=== PATIENT | male | born 1980 | race Caucasian/White ===

== ENCOUNTER 2017-04-25 15:52 | Emergency (ER) | payer SELFPAY ==
[~2017-04-25] VITALS: Ht 190.5 cm; Wt 68.2 kg
[~2017-04-25 15:52] MED LIST: CEPH500C3 PO; HUMALOGP; LANTUS2P SC; LORTA10 PO; XANA0.5T PO
[2017-04-25 16:00] VITALS: BP 134/70; PULSE 63; RESP 15; TEMP 97.4; O2SAT 99
[2017-04-25] MEDS ORDERED: ALPR.5 PO (16:11)
[2017-04-25] MEDS ORDERED: HYDR-3580 PO (16:11)
[2017-04-25] MEDS ORDERED: NOVORP2 SQ (16:11)
[2017-04-25] MEDS ORDERED: SODIUM CHLOR 0.9% 1000 ML INJ 1,000 ML IV SCH (16:30)
--- NOTE | 2017-04-25 16:35 | PD ---
HPI Chief Complaint: Alcohol/Drug Intoxication Time Seen by Provider: 16:23 Travel History International Travel<30 days: No Contact w/Intl Traveler<30days: No Traveled to known affect area: No History of Present Illness HPI 36 years old male was brought by EMS for lethargy. Patient's mother called EMS because she believes that patient took too many Xanax. Upon arrival patient was able to ambulate from the stretcher to the bed and was talking denies any medical problem. Patient has no complaint at that time. Patient is sleepy in the room now. Patient does not complains of anything right now. Patient has history of diabetes and chronic pain problem. Patient was reported on insulin, Xanax and hydrocodone. PFSH Past Medical History Arthritis: No Asthma: No Autoimmune Disease: No Blood Disorders: No Heart Rhythm Problems: No Cardiovascular Problems: No High Cholesterol: No Chemotherapy: No Chest Pain: Yes Congestive Heart Failure: No COPD: No Cerebrovascular Accident: No Coronary Artery Disease: No Diabetes: Yes (TYPE 1) Patient Takes Glucophage: No Diminished Hearing: No Endocrine: Yes Gastrointestinal Disorders: Yes Genitourinary: No Headaches: Yes Hepatitis: No Hiatal Hernia: Yes Hypertension: Yes Immune Disorder: No Inguinal Hernia: Yes (REPAIRED) Musculoskeletal: Yes (CHRONIC PAIN) Neurologic: Yes Psychiatric: No Reproductive: No Respiratory: No Migraines: No Myocardial Infarction: No Seizures: No Sickle Cell Disease: No Thyroid Disease: No Tetanus Vaccination: > 5 Years Influenza Vaccination: No PNEUMOCCOCAL Vaccine (Year): 2 Past Surgical History Abdominal Surgery: Yes (HERNIA REPAIR) Body Medical Devices: INGINEAL HERNIA Cholecystectomy: No Other Surgery: No Social History Alcohol Use: Yes ("OCCASIONALLY, RARELY PER PT") Tobacco Use: Yes (LESS THAN 1 PPD) Substance Use: Yes (Marijuana) Allergies-Medications (Allergen,Severity, Reaction): Coded Allergies: acetaminophen (Verified Allergy, Severe, Rash, 04/25/17) propoxyphene (Verified Allergy, Severe, Rash, 04/25/17) Reported Meds & Prescriptions Reported Meds & Active Scripts Active Reported Novolin R Inj (Insulin Human Regular) 1,000 Unit/10 Ml Vial 0 SQ DIRECTED Sliding Scale As Directed. Xanax (Alprazolam) 0.5 Mg Tab 0.5 Mg PO Q6H PRN Hydrocodone-Acetaminophen 7.5 Mg-325 Mg Tab 1 Tab PO Q4H PRN Review of Systems ROS Limitations: Altered Mental Status General / Constitutional: No: Fever Eyes: No: Visual changes HENT: No: Headaches Cardiovascular: No: Chest Pain or Discomfort Respiratory: No: Shortness of Breath Gastrointestinal: No: Abdominal Pain Genitourinary: No: Dysuria Musculoskeletal: No: Pain Skin: No Rash Neurologic: No: Weakness Psychiatric: No: Depression Endocrine: No: Polydipsia Hematologic/Lymphatic: No: Easy Bruising Physical Exam Narrative GENERAL: Well-nourished, well-developed patient. SKIN: Focused skin assessment warm/dry. HEAD: Normocephalic. EYES: No scleral icterus. No injection or drainage. Pupils 2 mm equal reactive. NECK: Supple, trachea midline. No JVD or lymphadenopathy. CARDIOVASCULAR: Regular rate and rhythm without murmurs, gallops, or rubs. RESPIRATORY: Breath sounds equal bilaterally. No accessory muscle use. GASTROINTESTINAL: Abdomen soft, non-tender, nondistended. MUSCULOSKELETAL: No cyanosis, or edema. Patient has multiple needle puncture wounds along the forearms and antecubital areas bilaterally. BACK: Nontender without obvious deformity. No CVA tenderness. Neurologic exam: Patient's lethargic. Patient's not communicative. No obvious focal neurological deficit. Data Data Last Documented VS Vital Signs Date Time Temp Pulse Resp B/P (MAP) Pulse Ox O2 Delivery O2 Flow Rate FiO2 04/25/17 17:10 62 15 119/70 (86) 98 Room Air 04/25/17 16:00 97.4 Orders Orders Electrocardiogram (04/25/17 16:28) Complete Blood Count With Diff (04/25/17 16:28) Comprehensive Metabolic Panel (04/25/17 16:28) Creatine Kinase (Cpk) (04/25/17 16:28) Troponin I (04/25/17 16:28) Iv Access Insert/Monitor (04/25/17 16:28) Ecg Monitoring (04/25/17 16:28) Oximetry (04/25/17 16:28) Drug Screen, Random Urine (04/25/17 16:28) Alcohol (Ethanol) (04/25/17 16:28) Salicylates (Aspirin) (04/25/17 16:28) Tylenol (Acetaminophen) (04/25/17 16:28) Sodium Chlor 0.9% 1000 Ml Inj (Ns 1000 M (04/25/17 16:30) Labs Laboratory Tests Test 04/25/17 16:29 04/25/17 16:54 White Blood Count 6.1 TH/MM3 Red Blood Count 4.28 MIL/MM3 Hemoglobin 12.9 GM/DL Hematocrit 39.3 % Mean Corpuscular Volume 91.9 FL Mean Corpuscular Hemoglobin 30.1 PG Mean Corpuscular Hemoglobin Concent 32.7 % Red Cell Distribution Width 11.9 % Platelet Count 170 TH/MM3 Mean Platelet Volume 9.2 FL Neutrophils (%) (Auto) 69.7 % Lymphocytes (%) (Auto) 23.0 % Monocytes (%) (Auto) 5.7 % Eosinophils (%) (Auto) 0.9 % Basophils (%) (Auto) 0.7 % Neutrophils # (Auto) 4.3 TH/MM3 Lymphocytes # (Auto) 1.4 TH/MM3 Monocytes # (Auto) 0.3 TH/MM3 Eosinophils # (Auto) 0.1 TH/MM3 Basophils # (Auto) 0.0 TH/MM3 CBC Comment DIFF FINAL Differential Comment Blood Urea Nitrogen 10 MG/DL Creatinine 0.79 MG/DL Random Glucose 306 MG/DL Total Protein 6.8 GM/DL Albumin 3.4 GM/DL Calcium Level 8.5 MG/DL Alkaline Phosphatase 96 U/L Aspartate Amino Transf (AST/SGOT) 33 U/L Alanine Aminotransferase (ALT/SGPT) 29 U/L Total Bilirubin 0.5 MG/DL Sodium Level 137 MEQ/L Potassium Level 4.2 MEQ/L Chloride Level 103 MEQ/L Carbon Dioxide Level 23.6 MEQ/L Anion Gap 10 MEQ/L Estimat Glomerular Filtration Rate 111 ML/MIN Total Creatine Kinase 294 U/L Troponin I LESS THAN 0.02 NG/ML Ethyl Alcohol Level LESS THAN 3 MG/DL Urine Opiates Screen NEG Urine Barbiturates Screen NEG Urine Amphetamines Screen POS Urine Benzodiazepines Screen POS Urine Cocaine Screen POS Urine Cannabinoids Screen NEG MDM Medical Decision Making Medical Screen Exam Complete: Yes Emergency Medical Condition: Yes Interpretation(s) 1745 PM. CBC within normal limit. CMP within normal limit. Glucose 306. Opponent normal. Cardiac enzymes are normal. Urine drug screen positive for amphetamine, benzodiazepine and cocaine. Differential Diagnosis Differential diagnosis including drug overdose, intoxication, electrolyte imbalance,. Narrative Course 36 years old male was brought in by EMS for lethargy and possible overdose on Xanax. Diagnosis Primary Impression: Substance induced mood disorder Additional Impression: Polysubstance abuse Patient Instructions: General Instructions Additional Instructions: Advised [facility]. Med/Other Pt SpecificInfo: No Meds Exist/No RX given Disposition: 01 DISCHARGE HOME Condition: Stable Mehrdad Vickers MD Apr 25, 2017 16:35
[2017-04-25 16:40] VITALS: BP 119/75; PULSE 64; RESP 16; O2SAT 98
[2017-04-25 16:52] LABS: AUTOMATED NEUTROPHIL # 4.3 TH/MM3 (1.8-7.7); BASOPHIL % 0.7 % (0.0-2.0); EOSINOPHIL # 0.1 TH/MM3 (0-0.4); EOSINOPHIL % 0.9 % (0.0-4.0); HEMATOCRIT 39.3 % (39.0-51.0); HEMOGLOBIN 12.9 GM/DL (13.0-17.0); LYMPHOCYTE # 1.4 TH/MM3 (1.0-4.8); MEAN CELL VOLUME 91.9 FL (80.0-100.0); MEAN CORPUSCULAR HEMOGLOBIN 30.1 PG (27.0-34.0); MEAN CORPUSCULAR HGB CONC 32.7 % (32.0-36.0); MEAN PLATELET VOLUME 9.2 FL (7.0-11.0); MONO % 5.7 % (0.0-8.0); MONOCYTE # 0.3 TH/MM3 (0-0.9); NEUT % 69.7 % (16.0-70.0); PLATELET COUNT 170 TH/MM3 (150-450); RED BLOOD COUNT 4.28 MIL/MM3 (4.50-5.90); RED CELL DISTRIBUTION WIDTH 11.9 % (11.6-17.2); WHITE BLOOD COUNT 6.1 TH/MM3 (4.0-11.0)
[2017-04-25 17:06] LABS: CHLORIDE 103 MEQ/L (98-107); SODIUM (NA) 137 MEQ/L (136-145)
[2017-04-25 17:09] LABS: ALBUMIN 3.4 GM/DL (3.4-5.0); BICARBONATE 23.6 MEQ/L (21.0-32.0); CALCIUM 8.5 MG/DL (8.5-10.1); GLUCOSE,RANDOM 306 MG/DL (74-106)
[2017-04-25 17:10] VITALS: BP 119/70; PULSE 62; RESP 15; O2SAT 98
[2017-04-25 17:10] LABS: BLOOD UREA NITROGEN 10 MG/DL (7-18)
[2017-04-25 17:12] LABS: ALT (GPT) 29 U/L (12-78); AST (GOT) 33 U/L (15-37)
[2017-04-25 17:13] LABS: CREATININE 0.79 MG/DL (0.60-1.30); GLOMERULAR FILTRATION RATE 111 ML/MIN (>89)
[2017-04-25 17:14] LABS: TOTAL BILIRUBIN ADULT 0.5 MG/DL (0.2-1.0); TOTAL PROTEIN 6.8 GM/DL (6.4-8.2)
[2017-04-25 17:15] LABS: ALKALINE PHOSPHATASE 96 U/L (45-117)
[2017-04-25 17:17] LABS: TROPONIN I LESS THAN 0.02 NG/ML (0.02-0.05)
[2017-04-25 18:40] VITALS: BP 124/69; PULSE 66; RESP 15; TEMP 97.5; O2SAT 100
[2017-04-25 20:49] VITALS: BP 121/69; PULSE 62; RESP 14; O2SAT 0; O2SAT 99
[2017-04-25 22:18] VITALS: BP 114/71; TEMP 98.4
[2017-04-26 07:39] LABS: ACETAMINOPHEN LESS THAN 2.0 MCG/ML (10.0-30.0)
--- NOTE | 2017-04-26 15:33 | EKG ---
Date Performed: 04/25/2017 Time Performed: 16:36:58 PTAGE: 36 years EKG: SINUS BRADYCARDIA BORDERLINE ECG PREVIOUS TRACING : 09/25/2008 03.24 Compared to prior tracing no significant change DOCTOR: Misha Hartley Interpretating Date/Time 04/26/2017 15:31:06
== END 2017-04-25 22:37 | disposition home or self-care (01) ==
LOC: PHED 15:52
DX: F19.14 Other psychoactive substance abuse with psychoactive substance-induced mood disorder (principal); R94.31 Abnormal electrocardiogram [ECG] [EKG]; E11.9 Type 2 diabetes mellitus without complications; I10 Essential (primary) hypertension; G89.29 Other chronic pain; F17.200 Nicotine dependence, unspecified, uncomplicated
CPT/HCPCS: 80053; 80307; 82550; 84484; 85025; 93005; 96360; 96361; 99284; J7030

== ENCOUNTER 2017-05-28 18:56 | Inpatient (IN) | payer SELFPAY ==
[~2017-05-28] VITALS: Ht 188 cm; Wt 68.2 kg
[~2017-05-28 18:56] MED LIST changes: +ALPR.5 PO; -CEPH500C3 PO; -HUMALOGP; +HYDR-3580 PO; -LANTUS2P SC; -LORTA10 PO; +NOVORP2 SQ; -XANA0.5T PO
[2017-05-28 19:10] VITALS: BP 122/71; PULSE 84; RESP 15; TEMP 99.5; O2SAT 98
[2017-05-28] MEDS ORDERED: SODIUM CHLOR 0.9% 1000 ML INJ 1,000 ML IV ONE (20:30)
[2017-05-28] MEDS ORDERED: PIPERACIL-TAZO 4.5 GM PREMIX 100 ML IV ONE (20:30)
[2017-05-28] MEDS ORDERED: VANCOMYCIN INJ 1,000 MG in SODIUM CHLOR 0.9% 250 ML INJ 250 ML IV ONE (20:30)
[2017-05-28] MEDS ORDERED: KETOROLAC TROMETHAMINE 30 MG/ML (IVP) VIAL IVP ONE (20:30)
[2017-05-28 21:29] LABS: BASOPHIL # 0.1 TH/MM3 (0-0.2); BASOPHIL % 0.7 % (0.0-2.0); EOSINOPHIL # 0.1 TH/MM3 (0-0.4); EOSINOPHIL % 0.4 % (0.0-4.0); HEMATOCRIT 34.9 % (39.0-51.0); HEMOGLOBIN 12.2 GM/DL (13.0-17.0); LYMPH % 15.7 % (9.0-44.0); LYMPHOCYTE # 2.4 TH/MM3 (1.0-4.8); MEAN CELL VOLUME 89.9 FL (80.0-100.0); MEAN CORPUSCULAR HEMOGLOBIN 31.5 PG (27.0-34.0); MEAN PLATELET VOLUME 8.9 FL (7.0-11.0); MONO % 10.2 % (0.0-8.0); MONOCYTE # 1.5 TH/MM3 (0-0.9); PLATELET COUNT 281 TH/MM3 (150-450); RED BLOOD COUNT 3.88 MIL/MM3 (4.50-5.90); RED CELL DISTRIBUTION WIDTH 12.2 % (11.6-17.2); WHITE BLOOD COUNT 15.1 TH/MM3 (4.0-11.0)
[2017-05-28 21:50] LABS: BICARBONATE 31.3 MEQ/L (21.0-32.0); CALCIUM 8.5 MG/DL (8.5-10.1)
--- NOTE | 2017-05-28 22:51 | PD ---
HPI Chief Complaint: Skin Problem Time Seen by Provider: 20:24 Travel History International Travel<30 days: No Contact w/Intl Traveler<30days: No Traveled to known affect area: No History of Present Illness HPI 36-year-old male with IV drug abuse history since to the emergency department with redness swelling tenderness and pain with subjective fever affecting the right upper arm. Patient is diabetic and states he ran out of test strips yesterday but blood sugars have been in the 300s. Patient had nausea without vomiting. Patient denies any chest pain shortness of breath abdominal pain abdominal cramping. Patient takes chronically hydrocodone and Xanax for her chronic pain syndrome and anxiety. Patient states he decided to inject Percocet as he had been running low on his hydrocodone for his chronic pain management. PFSH Past Medical History Arthritis: No Asthma: No Autoimmune Disease: No Blood Disorders: No Heart Rhythm Problems: No Cardiovascular Problems: No High Cholesterol: No Chemotherapy: No Chest Pain: Yes Congestive Heart Failure: No COPD: No Cerebrovascular Accident: No Coronary Artery Disease: No Diabetes: Yes (TYPE 1) Patient Takes Glucophage: No Diminished Hearing: No Endocrine: Yes Gastrointestinal Disorders: Yes Genitourinary: No Headaches: Yes Hepatitis: No Hiatal Hernia: Yes Hypertension: Yes Immune Disorder: No Inguinal Hernia: Yes (REPAIRED) Musculoskeletal: Yes (CHRONIC PAIN) Neurologic: Yes Psychiatric: No Reproductive: No Respiratory: No Migraines: No Myocardial Infarction: No Seizures: No Sickle Cell Disease: No Thyroid Disease: No Influenza Vaccination: No PNEUMOCCOCAL Vaccine (Year): 2 Past Surgical History Surgical History: No Previous Surgery Abdominal Surgery: Yes (HERNIA REPAIR) Body Medical Devices: INGINEAL HERNIA Cholecystectomy: No Other Surgery: No Social History Alcohol Use: Yes ("OCCASIONALLY, RARELY PER PT") Tobacco Use: Yes (LESS THAN 1 PPD) Substance Use: Yes (Marijuana, EDGARDO ) Allergies-Medications (Allergen,Severity, Reaction): Coded Allergies: acetaminophen (Verified Allergy, Severe, Rash, 04/25/17) propoxyphene (Verified Allergy, Severe, Rash, 04/25/17) Reported Meds & Prescriptions Reported Meds & Active Scripts Active Reported Novolin R Inj (Insulin Human Regular) 1,000 Unit/10 Ml Vial 0 SQ DIRECTED Sliding Scale As Directed. Xanax (Alprazolam) 0.5 Mg Tab 0.5 Mg PO Q6H PRN Hydrocodone-Acetaminophen 7.5 Mg-325 Mg Tab 1 Tab PO Q4H PRN Physical Exam Narrative GENERAL: Well-developed well-nourished male no acute distress or respiratory distress SKIN: Warm and dry. HEAD: Normocephalic. EYES: No scleral icterus. No injection or drainage. NECK: Supple, trachea midline. No JVD or lymphadenopathy. CARDIOVASCULAR: Regular rate and rhythm without murmurs, gallops, or rubs. RESPIRATORY: Breath sounds equal bilaterally. No accessory muscle use. GASTROINTESTINAL: Abdomen soft, non-tender, nondistended. MUSCULOSKELETAL: No cyanosis, or edema. Attention right upper extremity upper arm area with erythema induration central bullous lesion with cloudy fluid no axillary lymphadenopathy distal extremities neurovascular tendon intact. BACK: Nontender without obvious deformity. No CVA tenderness. Data Data Last Documented VS Vital Signs Date Time Temp Pulse Resp B/P (MAP) Pulse Ox O2 Delivery O2 Flow Rate FiO2 05/28/17 19:10 99.5 84 15 122/71 (88) 98 Orders Orders Basic Metabolic Panel (Bmp) (05/28/17 20:24) Complete Blood Count With Diff (05/28/17 20:24) Blood Culture (05/28/17 20:24) Wound Culture And Gram Stain (05/28/17 20:24) Iv Access Insert/Monitor (05/28/17 20:24) Ketorolac Inj (Toradol Inj) (05/28/17 20:30) Sodium Chlor 0.9% 1000 Ml Inj (Ns 1000 M (05/28/17 20:30) Blood Glucose (05/28/17 20:24) Piperacil-Tazo 4.5 Gm Premix (Zosyn 4.5 (05/28/17 20:30) Vancomycin Inj (Vancomycin Inj) (05/28/17 20:30) Drug Screen, Random Urine (05/28/17 20:24) Beta Hydroxybutyrate (Acetone) (05/28/17 20:24) Vancomycin Consult Pharmacy (Vancomycin (05/28/17 23:30) Cefepime Inj (Maxipime Inj) (05/29/17 09:00) Place In Observation (05/28/17 ) Vital Signs (Adult) Q4H (05/28/17 23:24) Activity Oob Ad Dawn (05/28/17 23:24) Sodium Chlor 0.9% 1000 Ml Inj (Ns 1000 M (05/28/17 23:24) Sodium Chloride 0.9% Flush (Ns Flush) (05/28/17 23:30) Sodium Chloride 0.9% Flush (Ns Flush) (05/29/17 09:00) Ondansetron Inj (Zofran Inj) (05/28/17 23:30) Comprehensive Metabolic Panel (05/29/17 06:00) Complete Blood Count With Diff (05/29/17 06:00) Scd Bilateral/Knee High YAMILET.BID (05/28/17 23:24) Lokesh Bilateral/Knee High YAMILET.QSHIFT (05/28/17 23:26) Oxycodone (Roxicodone) (05/28/17 23:30) Oxycodone (Roxicodone) (05/28/17 23:30) Docusate Sodium-Senna (Shahnaz-Colace) (05/29/17 09:00) Magnesium Hydroxide Liq (Milk Of Magnesi (05/28/17 23:30) Sennosides (Senokot) (05/28/17 23:30) Bisacodyl Supp (Dulcolax Supp) (05/28/17 23:30) Lactulose Liq (Lactulose Liq) (05/28/17 23:30) Bedside Glucose YAMILET.CSUGAR (05/28/17 23:24) Blood Glucose Goal (Criteria) (05/28/17 23:24) Hypoglycemia 70 Mg/Dl Or < (05/28/17 23:24) Notify Dr: Other (05/28/17 23:24) Dextrose 50% In Ghazala (Vial) Inj (D50w (Vi (05/28/17 23:30) Glucagon Inj (Glucagon Inj) (05/28/17 23:30) Insulin Aspart Supplemtl Scale (Novolog (05/29/17 08:00) Hemoglobin (Hgb) A1c (05/29/17 06:00) Admit Order (Ed Use Only) (05/29/17 ) Grinder Set Up Operator Internal / Telemetry YAMILET.Q8H (05/29/17 00:23) Diet 1999 Ada Cons Carb (05/29/17 Breakfast) Activity Oob With Assistance (05/29/17 00:23) Notify Dr: Other (05/29/17 00:23) Labs Laboratory Tests Test 05/28/17 20:40 White Blood Count 15.1 TH/MM3 Red Blood Count 3.88 MIL/MM3 Hemoglobin 12.2 GM/DL Hematocrit 34.9 % Mean Corpuscular Volume 89.9 FL Mean Corpuscular Hemoglobin 31.5 PG Mean Corpuscular Hemoglobin Concent 35.0 % Red Cell Distribution Width 12.2 % Platelet Count 281 TH/MM3 Mean Platelet Volume 8.9 FL Neutrophils (%) (Auto) 73.0 % Lymphocytes (%) (Auto) 15.7 % Monocytes (%) (Auto) 10.2 % Eosinophils (%) (Auto) 0.4 % Basophils (%) (Auto) 0.7 % Neutrophils # (Auto) 11.0 TH/MM3 Lymphocytes # (Auto) 2.4 TH/MM3 Monocytes # (Auto) 1.5 TH/MM3 Eosinophils # (Auto) 0.1 TH/MM3 Basophils # (Auto) 0.1 TH/MM3 CBC Comment DIFF FINAL Differential Comment Blood Urea Nitrogen 9 MG/DL Creatinine 1.00 MG/DL Random Glucose 233 MG/DL Calcium Level 8.5 MG/DL Sodium Level 137 MEQ/L Potassium Level 3.5 MEQ/L Chloride Level 100 MEQ/L Carbon Dioxide Level 31.3 MEQ/L Anion Gap 6 MEQ/L Estimat Glomerular Filtration Rate 85 ML/MIN B-Hydroxybutyrate 0.05 MMOL/L MDM Medical Decision Making Medical Screen Exam Complete: Yes Emergency Medical Condition: Yes Medical Record Reviewed: Yes Interpretation(s) CBC & BMP Diagram 05/28/17 20:40 Calcium Level 8.5 Vital Signs Date Time Temp Pulse Resp B/P (MAP) Pulse Ox O2 Delivery O2 Flow Rate FiO2 05/28/17 19:10 99.5 84 15 122/71 (88) 98 Differential Diagnosis Cellulitis abscess sepsis Narrative Course Patient presents with right upper extremity cellulitis with central fluctuance for abscess and intact bullous lesion with cloudy fluid IV access obtained specimens collected and sent for resulting aspiration of the bullous lesion performed and sent with culture Patient administered Toradol for pain management Site was incised with drainage and packing performed by nurse practitioner Patient's case discussed with medicine for admission Physician Communication Physician Communication discussed with Dr Florez Diagnosis Primary Impression: Abscess of right arm Additional Impression: Cellulitis of arm, right Admitting Information Admitting Physician Requests: Observation Lexi Melvin MD May 28, 2017 22:51
--- NOTE | 2017-05-28 23:07 | PD ---
Physical Exam Date Seen by Provider: May 28, 2017 Time Seen by Provider: 23:06 Narrative For full history and physical examination please see previous provider's note. I was asked to perform an incision and drainage to patient's right arm abscess. Data Data Last Documented VS Vital Signs Date Time Temp Pulse Resp B/P (MAP) Pulse Ox O2 Delivery O2 Flow Rate FiO2 05/28/17 19:10 99.5 84 15 122/71 (88) 98 Orders Orders Basic Metabolic Panel (Bmp) (05/28/17 20:24) Complete Blood Count With Diff (05/28/17 20:24) Blood Culture (05/28/17 20:24) Wound Culture And Gram Stain (05/28/17 20:24) Iv Access Insert/Monitor (05/28/17 20:24) Ketorolac Inj (Toradol Inj) (05/28/17 20:30) Sodium Chlor 0.9% 1000 Ml Inj (Ns 1000 M (05/28/17 20:30) Blood Glucose (05/28/17 20:24) Piperacil-Tazo 4.5 Gm Premix (Zosyn 4.5 (05/28/17 20:30) Vancomycin Inj (Vancomycin Inj) (05/28/17 20:30) Drug Screen, Random Urine (05/28/17 20:24) Urinalysis - C+S If Indicated (05/28/17 20:24) Beta Hydroxybutyrate (Acetone) (05/28/17 20:24) Labs Laboratory Tests Test 05/28/17 20:40 White Blood Count 15.1 TH/MM3 Red Blood Count 3.88 MIL/MM3 Hemoglobin 12.2 GM/DL Hematocrit 34.9 % Mean Corpuscular Volume 89.9 FL Mean Corpuscular Hemoglobin 31.5 PG Mean Corpuscular Hemoglobin Concent 35.0 % Red Cell Distribution Width 12.2 % Platelet Count 281 TH/MM3 Mean Platelet Volume 8.9 FL Neutrophils (%) (Auto) 73.0 % Lymphocytes (%) (Auto) 15.7 % Monocytes (%) (Auto) 10.2 % Eosinophils (%) (Auto) 0.4 % Basophils (%) (Auto) 0.7 % Neutrophils # (Auto) 11.0 TH/MM3 Lymphocytes # (Auto) 2.4 TH/MM3 Monocytes # (Auto) 1.5 TH/MM3 Eosinophils # (Auto) 0.1 TH/MM3 Basophils # (Auto) 0.1 TH/MM3 CBC Comment DIFF FINAL Differential Comment Blood Urea Nitrogen 9 MG/DL Creatinine 1.00 MG/DL Random Glucose 233 MG/DL Calcium Level 8.5 MG/DL Sodium Level 137 MEQ/L Potassium Level 3.5 MEQ/L Chloride Level 100 MEQ/L Carbon Dioxide Level 31.3 MEQ/L Anion Gap 6 MEQ/L Estimat Glomerular Filtration Rate 85 ML/MIN B-Hydroxybutyrate 0.05 MMOL/L MDM Medical Record Reviewed: Yes Supervised Visit with MALVIN: Yes Procedures Procedure Narrative After the risks and benefits were discussed the following procedure was performed: INCISION AND DRAINAGE OF ABSCESS: The area was prepped and was sterilely draped. A subcutaneous wheal of 1 % Xylocaine with a total number 3 mL was used to anesthetize the area. The area was properly anesthetized. A number 11 scalpel was used to make a 1 -cm incision across the area of the abscess. Cultures were obtained. The abscess was drained an irrigated with normal saline. Quarter inch iodoform packing was placed in the wound. Sterile dressing applied. Patient advised to have packing removed in two days. Jahaira Naranjo May 28, 2017 23:07
--- NOTE | 2017-05-28 23:27 | HHI.HP ---
HPI Service [facility] Primary Care Physician Winter Florentino MD Admission Diagnosis Diagnoses: (1) Abscess of right arm Diagnosis: Principal (2) IVDU (intravenous drug user) Diagnosis: Principal (3) DM (diabetes mellitus) Diagnosis: Principal (4) Tobacco abuse Diagnosis: Principal Travel History International Travel<30 Days: No Contact w/Intl Traveler <30 Da: No Traveled to Known Affected Are: No History of Present Illness This is a 36-year-old male with PMH of DM, Tobacco Abuse and IVDU who is brought to the ER by EMS secondary to complaints of right arm pain and swelling. Initially reported he was bitten by a snake, however later admitted he injects Oxycodone and Annie. States pain is constant, severe, 8/10, non- radiating, worse w/ movement. Denies fever, chills. On arrival, BP 122/71, HR 84, O2 sat 98% on RA, Temp 99.5. WBC 15.1. GFR 85. BS 233. Reports non- compliance w/ home insulin. S/p I&D in ER, Vanc/Kasian. Review of Systems Except as stated in HPI: all other systems reviewed are Neg ROS: 14 point review of systems otherwise negative. Past Family Social History Past Medical History PMH: DM, Tobacco Abuse and IVDU Past Surgical History PAST SURGICAL HISTORY: Hernia Repair Allergies: Coded Allergies: acetaminophen (Verified Allergy, Severe, Rash, 04/25/17) propoxyphene (Verified Allergy, Severe, Rash, 04/25/17) Family History PAST FAMILY HISTORY: Reviewed. No h/o DM or CAD Social History PAST SOCIAL HISTORY: Occasional alcohol. Smokes 1ppd. +IVDU Physical Exam Vital Signs Vital Signs Date Time Temp Pulse Resp B/P (MAP) Pulse Ox O2 Delivery O2 Flow Rate FiO2 05/28/17 19:10 99.5 84 15 122/71 (88) 98 Physical Exam PE: GENERAL: Young white male in no acute distress. HEENT: PERRLA, EOMI. No scleral icterus or conjunctival pallor. No lid lag or facial droop. CARDIOVASCULAR: Regular rate and rhythm. No obvious murmurs to auscultation. No chest tenderness to palpation. RESPIRATORY: No obvious rhonchi or wheezing. Clear to auscultation. Breath sounds equal bilaterally. GASTROINTESTINAL: Abdomen soft, non-tender, nondistended. BS normal. MUSCULOSKELETAL: Extremities without clubbing, cyanosis, or edema. No obvious deformities. RUE abscess s/p I&D w/ packing. Pulses intact. NEUROLOGICAL: Awake, alert and oriented x4. No focal neurologic deficits. Moving both upper and lower extremities spontaneously. Laboratory Laboratory Tests Test 05/28/17 20:40 White Blood Count 15.1 Red Blood Count 3.88 Hemoglobin 12.2 Hematocrit 34.9 Mean Corpuscular Volume 89.9 Mean Corpuscular Hemoglobin 31.5 Mean Corpuscular Hemoglobin Concent 35.0 Red Cell Distribution Width 12.2 Platelet Count 281 Mean Platelet Volume 8.9 Neutrophils (%) (Auto) 73.0 Lymphocytes (%) (Auto) 15.7 Monocytes (%) (Auto) 10.2 Eosinophils (%) (Auto) 0.4 Basophils (%) (Auto) 0.7 Neutrophils # (Auto) 11.0 Lymphocytes # (Auto) 2.4 Monocytes # (Auto) 1.5 Eosinophils # (Auto) 0.1 Basophils # (Auto) 0.1 CBC Comment DIFF FINAL Differential Comment Blood Urea Nitrogen 9 Creatinine 1.00 Random Glucose 233 Calcium Level 8.5 Sodium Level 137 Potassium Level 3.5 Chloride Level 100 Carbon Dioxide Level 31.3 Anion Gap 6 Estimat Glomerular Filtration Rate 85 B-Hydroxybutyrate 0.05 Date/Time Source Procedure Growth Status 05/28/17 20:40 Blood Peripheral Aerobic Blood Culture Pending Received 05/28/17 20:40 Blood Peripheral Anaerobic Blood Culture Pending Received 05/28/17 22:30 Wound Arm Gram Stain Pending Received 05/28/17 22:30 Wound Arm Wound Culture Pending Received Result Diagram: 05/28/17203905/28/172039 Caprini VTE Risk Assessment Caprini VTE Risk Assessment: No/Low Risk (score <= 1) Caprini Risk Assessment Model Point Value = 1 Point Value = 2 Point Value = 3 Point Value = 5 Age 41-60 Minor surgery BMI > 25 kg/m2 Swollen legs Varicose veins or History of unexplained or recurrent spontaneous Oral contraceptives or hormone replacement Sepsis (< 1 month) Serious lung disease, including pneumonia (< 1 month) Abnormal pulmonary function Acute myocardial infarction Congestive heart failure (< 1 month) History of inflammatory bowel disease Medical patient at bed rest Age 61-74 Arthroscopic surgery Major open surgery (> 45 min) Laparoscopic surgery (> 45 min) Malignancy Confined to bed (> 72 hours) Immobilizing plaster cast Central venous access Age >= 75 History of VTE Family history of VTE Factor V Leiden Prothrombin [id number] Lupus anticoagulant Anticardiolipin antibodies Elevated serum homocysteine Heparin-induced thrombocytopenia Other congenital or acquired thrombophilia Stroke (< 1 month) Elective arthroplasty Hip, pelvis, or leg fracture Acute spinal cord injury (< 1 month) Prophylaxis Regimen Total Risk Factor Score Risk Level Prophylaxis Regimen 0-1 Low Early ambulation 2 Moderate Order ONE of the following: *Sequential Compression Device (SCD) *Heparin 5000 units SQ BID 3-4 Higher Order ONE of the following medications: *Heparin 5000 units SQ TID *Enoxaparin/Lovenox 40 mg SQ daily (WT < 150 kg, CrCl > 30 mL/min) *Enoxaparin/Lovenox 30 mg SQ daily (WT < 150 kg, CrCl > 10-29 mL/min) *Enoxaparin/Lovenox 30 mg SQ BID (WT < 150 kg, CrCl > 30 mL/min) AND/OR *Sequential Compression Device (SCD) 5 or more Highest Order ONE of the following medications: *Heparin 5000 units SQ TID (Preferred with Epidurals) *Enoxaparin/Lovenox 40 mg SQ daily (WT < 150 kg, CrCl > 30 mL/min) *Enoxaparin/Lovenox 30 mg SQ daily (WT < 150 kg, CrCl > 10-29 mL/min) *Enoxaparin/Lovenox 30 mg SQ BID (WT < 150 kg, CrCl > 30 mL/min) AND *Sequential Compression Device (SCD) Assessment and Plan Problem List: (1) Abscess of right arm ICD Code: L02.413 - Cutaneous abscess of right upper limb (2) IVDU (intravenous drug user) ICD Code: F19.90 - Other psychoactive substance use, unspecified, uncomplicated (3) DM (diabetes mellitus) ICD Code: E11.9 - Type 2 diabetes mellitus without complications (4) Tobacco abuse ICD Code: Z72.0 - Tobacco use Assessment and Plan A/P: 1. RUE Abscess: s/p injection w/ Oxy/Annie, now w/ abscess, s/p I&D in ER. Follow up wound/blood cultures, continue w/ IV Abx, Wound Management consult as needed for further eval/tx. 2. DM: Uncontrolled secondary to non-compliance. Sliding scale w/ Accu-Cheks , check Hgb A1c. 3. IVDU: Admits to IVDU w/ Oxy/Annie, h/o Cocaine. Ativan prn. 4. Tobacco Abuse: Pt counselled. NicoDerm prn if needed. 5. DVT Prophylaxis: SCD/Teds. 6. Social work for d/c planning as needed. 7. Case discussed w/ ER physician at length, labs/records/imaging reviewed by me. Valorie Floerz MD May 28, 2017 23:27
[2017-05-28] MEDS ORDERED: DEXTROSE 50% IN WATER 50 ML VIAL(D50) IV PUSH PRN (23:30)
[2017-05-28] MEDS ORDERED: SODIUM CHLORIDE 0.9% FLUSH 10 ML FLUSH IV FLUSH PRN (23:30)
[2017-05-28] MEDS ORDERED: BISACODYL 10 MG SUPP RECTAL PRN (23:30)
[2017-05-28] MEDS ORDERED: ONDANSETRON HCL 4 MG/2 ML VIAL IVP PRN (23:30)
[2017-05-28] MEDS ORDERED: SENNOSIDES 8.6 MG TAB PO PRN (23:30)
[2017-05-28] MEDS ORDERED: MAGNESIUM HYDROXIDE SUSP 30 ML CUP PO PRN (23:30)
[2017-05-28] MEDS ORDERED: Vancomycin Consult Pharmacy 1 EA OTHER SCH (23:30)
[2017-05-28] MEDS ORDERED: LACTULOSE SYRUP 20 GM/30 ML CUP PO PRN (23:30)
[2017-05-28] MEDS ORDERED: GLUCAGON 1 MG/ML VIAL OTHER PRN (23:30)
[2017-05-29] VITALS (11 sets, daily range): BP systolic 114–137; BP diastolic 62–73; PULSE 68–91; RESP 18; TEMP 97.6–98.8; O2SAT 98–100
[2017-05-29] MEDS: SODIUM CHLOR 0.9% 1000 ML INJ 1,000 ML IV SCH ×3 (02:19→19:05)
[2017-05-29] MEDS ORDERED: INSULIN HUMAN REGULAR 1,000 UNITS/10 ML VIAL IV PUSH ONE (02:45)
[2017-05-29 07:35] LABS: AUTOMATED NEUTROPHIL # 10.6 TH/MM3 (1.8-7.7); BASOPHIL # 0.1 TH/MM3 (0-0.2); BASOPHIL % 0.5 % (0.0-2.0); EOSINOPHIL % 0.2 % (0.0-4.0); HEMATOCRIT 33.5 % (39.0-51.0); HEMOGLOBIN 11.8 GM/DL (13.0-17.0); LYMPH % 13.4 % (9.0-44.0); LYMPHOCYTE # 1.8 TH/MM3 (1.0-4.8); MEAN CELL VOLUME 89.7 FL (80.0-100.0); MEAN CORPUSCULAR HEMOGLOBIN 31.6 PG (27.0-34.0); MEAN CORPUSCULAR HGB CONC 35.2 % (32.0-36.0); MEAN PLATELET VOLUME 8.1 FL (7.0-11.0); MONO % 8.5 % (0.0-8.0); MONOCYTE # 1.2 TH/MM3 (0-0.9); NEUT % 77.4 % (16.0-70.0); PLATELET COUNT 264 TH/MM3 (150-450); RED BLOOD COUNT 3.73 MIL/MM3 (4.50-5.90); RED CELL DISTRIBUTION WIDTH 11.9 % (11.6-17.2); WHITE BLOOD COUNT 13.7 TH/MM3 (4.0-11.0)
[2017-05-29 08:04] LABS: ALBUMIN 2.6 GM/DL (3.4-5.0); ALT (GPT) 13 U/L (12-78); AST (GOT) 10 U/L (15-37); BICARBONATE 25.8 MEQ/L (21.0-32.0); BLOOD UREA NITROGEN 12 MG/DL (7-18); CHLORIDE 103 MEQ/L (98-107); CREATININE 0.75 MG/DL (0.60-1.30); GLOMERULAR FILTRATION RATE 118 ML/MIN (>89); GLUCOSE,RANDOM 219 MG/DL (74-106); SODIUM (NA) 137 MEQ/L (136-145)
[2017-05-29 08:06] LABS: ALKALINE PHOSPHATASE 126 U/L (45-117); TOTAL BILIRUBIN ADULT 0.5 MG/DL (0.2-1.0); TOTAL PROTEIN 6.6 GM/DL (6.4-8.2)
[2017-05-29] MEDS: DOCUSATE SODIUM 50 MG/SENNA 8.6 MG TAB PO SCH ×2 (09:00→21:00)
[2017-05-29] MEDS: SODIUM CHLORIDE 0.9% FLUSH 10 ML FLUSH IV FLUSH SCH ×2 (09:00→21:00)
--- NOTE | 2017-05-29 09:54 | HHI.PR ---
Subjective Remarks Follow up for RUE abscess. The patient reports continued RUE pain, edema, erythema surrounding abscess. He is still able to bend the right elbow. He reports minimal improvement overnight. Denies fevers/chills, chest pain, palpitations, shortness of breath, nausea/vomiting, or abdominal pain. Objective Vitals Vital Signs Date Time Temp Pulse Resp B/P (MAP) Pulse Ox O2 Delivery O2 Flow Rate FiO2 05/29/17 07:14 97.6 79 18 130/73 (92) 99 05/29/17 04:00 88 05/29/17 04:00 18 05/29/17 03:25 98.8 91 18 121/64 (83) 98 05/29/17 01:50 98.2 91 18 137/65 (89) 98 05/29/17 01:33 90 16 133/62 (85) 98 05/28/17 19:10 99.5 84 15 122/71 (88) 98 I/O 05/28/17 05/28/17 05/28/17 05/29/17 05/29/17 05/29/17 07:00 15:00 23:00 07:00 15:00 23:00 Intake Total 1350 ml Balance 1350 ml Intake IV Total 1350 ml Result Diagram: 05/29/17 0700 05/29/17 0700 Objective Remarks GENERAL: Well-nourished, well-developed male patient in [facility]. SKIN: Warm and dry. No rash. RUE abscess with packing in place, significant surrounding edema and erythema extending to the mid forearm and mid upper arm; diffusely tender to palpation. HEENT: Normocephalic. Atraumatic. Pupils equal and round. Mucous membranes pink and moist. CARDIOVASCULAR: Regular rate and rhythm. S1, S2 noted. No murmur appreciated. RESPIRATORY: No accessory muscle use. Clear to auscultation. Breath sounds equal bilaterally. GASTROINTESTINAL: Abdomen soft, non-tender, nondistended. Normoactive bowel sounds x4. MUSCULOSKELETAL: No obvious deformities. Extremities without clubbing, cyanosis , or edema. Full ROM of right wrist and elbow. NEUROLOGICAL: Awake and alert. No obvious cranial nerve deficits. Motor grossly within normal limits. Normal speech. PSYCHIATRIC: Appropriate mood and affect; insight and judgment normal. Medications and IVs Current Medications Medications (Trade) Dose Ordered Sig/Kareem Route Start Time Stop Time Status Last Admin Pharmacy Profile Note 0 ml @ 0 mls/hr UNSCH OTHER 05/28/17 23:30 Cefepime HCl 1000 mg/Sodium Chloride 100 ml @ 200 mls/hr Q12H IV 05/29/17 09:00 05/29/17 10:02 Sodium Chloride 1,000 ml @ 100 mls/hr Q10H IV 05/28/17 23:24 05/29/17 10:03 (NS Flush) 2 ml UNSCH PRN IV FLUSH 05/28/17 23:30 (NS Flush) 2 ml BID IV FLUSH 05/29/17 09:00 (Zofran Inj) 4 mg Q6H PRN IVP 05/28/17 23:30 (Roxicodone) 10 mg Q4H PRN PO 05/28/17 23:30 05/29/17 10:00 (Roxicodone) 5 mg Q4H PRN PO 05/28/17 23:30 (Shahnaz-Colace) 1 tab BID PO 05/29/17 09:00 (Milk Of Magnesia Liq) 30 ml Q12H PRN PO 05/28/17 23:30 (Senokot) 17.2 mg Q12H PRN PO 05/28/17 23:30 (Dulcolax Supp) 10 mg DAILY PRN RECTAL 05/28/17 23:30 (Lactulose Liq) 30 ml DAILY PRN PO 05/28/17 23:30 (D50w (Vial) Inj) 50 ml UNSCH PRN IV PUSH 05/28/17 23:30 (Glucagon Inj) 1 mg UNSCH PRN OTHER 05/28/17 23:30 (NovoLOG SUPPLEMENTAL SCALE) 1 ACHS SLIDING SCALE SQ 05/29/17 08:00 Vancomycin HCl 1250 mg/Sodium Chloride 262.5 ml @ 250 mls/hr ONCE ONCE IV 05/29/17 10:00 05/29/17 11:02 Vancomycin HCl 1250 mg/Sodium Chloride 262.5 ml @ 250 mls/hr Q12H IV 05/29/17 22:00 Miscellaneous Information SPECIFIC LAB TO BE [facility]... ONCE ONCE .XX 05/30/17 09:45 05/30/17 09:46 A/P Problem List: (1) Abscess of right arm ICD Code: L02.413 - Cutaneous abscess of right upper limb (2) IVDU (intravenous drug user) ICD Code: F19.90 - Other psychoactive substance use, unspecified, uncomplicated (3) DM (diabetes mellitus) ICD Code: E11.9 - Type 2 diabetes mellitus without complications (4) Tobacco abuse ICD Code: Z72.0 - Tobacco use Assessment and Plan 36-year-old male with PMH of DM, Tobacco Abuse and IVDU who is brought to the ER by EMS secondary to complaints of right arm pain and swelling after injecting Sepsis with RUE Abscess: s/p injection w/ Oxy/Annie, now w/ abscess. Meets sepsis criteria with leukocytosis WBC 15.1K and tachycardia, source-abscess. -S/p I&D in ER around midnight 05/29. -Change packing q24h, wound care orders placed -[employer] to provide IV pole with sling for elevation -Wound and Blood Cultures pending, continue to follow -Continue antibiotics with IV Vanco and IV Cefepime -Monitor for improvement. DM: Uncontrolled secondary to non-compliance. BG 233 upon arrival. -Sliding scale w/ Accu-Cheks -Check Hgb A1c. IVDU: Admits to IVDU w/ Oxy/Annie, h/o Cocaine. -Oxycodone prn pain -Ativan prn withdrawal. Tobacco Abuse: chronic -Pt counselled. -NicoDerm prn if needed. DVT Prophylaxis: SCD/Teds. Discharge Planning Discharge pending further clinical improvement, not yet ready for discharge. Yina Cuadra PA-C May 29, 2017 9:54 am
[2017-05-29] MEDS ORDERED: VANCOMYCIN INJ 1,250 MG in SODIUM CHLOR 0.9% 250 ML INJ 250 ML IV ONE (10:00)
[2017-05-29] MEDS: CEFEPIME INJ 1,000 MG in SODIUM CHLORIDE 0.9% INJ 100 ML IV SCH ×2 (10:02→23:44)
[2017-05-29] MEDS: INSULIN ASPART SUPPLEMENTAL SCALE SQ SCH ×4 (10:18→23:35)
[2017-05-29 12:46] LABS: HEMOGLOBIN A1C 8.7 % (4.3-6.0)
[2017-05-30] VITALS (8 sets, daily range): BP systolic 120–138; BP diastolic 74–81; PULSE 74–100; RESP 17–18; TEMP 95.8–98.2; O2SAT 96–98
[2017-05-30] MEDS: VANCOMYCIN INJ 1,250 MG in SODIUM CHLOR 0.9% 250 ML INJ 250 ML IV SCH ×2 (02:29→15:45)
[2017-05-30] MEDS ORDERED: SODIUM CHLOR 0.9% 1000 ML INJ 1,000 ML IV ONE ×2 (08:00→08:30)
[2017-05-30] MEDS ORDERED: INSULIN HUMAN REGULAR 1,000 UNITS/10 ML VIAL IV PUSH ONE (08:00)
[2017-05-30] MEDS: INSULIN ASPART SUPPLEMENTAL SCALE SQ SCH ×4 (08:05→21:00)
[2017-05-30] MEDS: SODIUM CHLORIDE 0.9% FLUSH 10 ML FLUSH IV FLUSH SCH ×2 (08:06→21:00)
[2017-05-30] MEDS: DOCUSATE SODIUM 50 MG/SENNA 8.6 MG TAB PO SCH ×2 (08:06→21:00)
[2017-05-30] MEDS: CEFEPIME INJ 1,000 MG in SODIUM CHLORIDE 0.9% INJ 100 ML IV SCH (08:07)
[2017-05-30] MEDS: SODIUM CHLOR 0.9% 1000 ML INJ 1,000 ML IV SCH ×2 (08:14→15:24)
--- NOTE | 2017-05-30 09:00 | HHI.PR ---
Subjective Remarks Patient reports that pain in right upper extremity continues. Denies any chest pain shortness of breath. Denies any nausea or vomiting. Objective Vital Signs Date Time Temp Pulse Resp B/P (MAP) Pulse Ox O2 Delivery O2 Flow Rate FiO2 05/30/17 08:00 95.8 82 17 128/74 (92) 98 05/30/17 05:31 98.2 79 18 138/81 (100) 96 05/29/17 23:32 98.1 68 18 129/72 (91) 99 05/29/17 20:13 18 05/29/17 19:38 97.8 71 18 114/67 (83) 98 05/29/17 15:40 71 05/29/17 15:30 98.0 72 18 134/69 (90) 100 05/29/17 11:32 98.2 82 18 118/64 (82) 98 I/O 05/29/17 05/29/17 05/29/17 05/30/17 05/30/17 05/30/17 07:00 15:00 23:00 07:00 15:00 23:00 Intake Total 1350 ml 100 ml Balance 1350 ml 100 ml Intake IV Total 1350 ml 100 ml Result Diagram: 05/29/17 0700 05/29/17 0700 Objective Remarks GENERAL: Patient sitting up in chair. Appears uncomfortable. Alert and oriented 3. SKIN: Warm and dry. HEAD: Normocephalic. EYES: No scleral icterus. No injection or drainage. NECK: Supple, trachea midline. No JVD. CARDIOVASCULAR: Regular rate and rhythm without murmurs, gallops, or rubs. RESPIRATORY: Breath sounds equal bilaterally. No accessory muscle use. GASTROINTESTINAL: Abdomen soft, non-tender, nondistended. MUSCULOSKELETAL: No cyanosis, or edema. BACK: Nontender without obvious deformity. No CVA tenderness. A/P Assessment and Plan 36-year-old male with PMH of DM, Tobacco Abuse and IVDU who is brought to the ER by EMS secondary to complaints of right arm pain and swelling after injecting //Sepsis with RUE Abscess: s/p injection w/ Oxy/Annie, now w/ abscess. Meets sepsis criteria with leukocytosis WBC 15.1K and tachycardia, source-abscess. -S/p I&D in ER around midnight 2/11. -Change packing q24h, wound care orders placed -[employer] to provide IV pole with sling for elevation -Wound and Blood Cultures pending, continue to follow -Continue antibiotics with IV Vanco and IV Cefepime -Monitor for improvement. = Slightly worsening erythema beyond the drawn borders. Order CT right upper extremity. Continue vancomycin. Adjust cefepime dosing. Orthotic consult for abscess drainage. //DM: Uncontrolled secondary to non-compliance. BG 233 upon arrival. -Sliding scale w/ Accu-Cheks -Check Hgb A1c. = Uncontrolled. Glucose 500 this morning. We will increase sliding scale to moderate, and Levemir. 1 L normal saline bolus. //IVDU: Admits to IVDU w/ Oxy/Annie, h/o Cocaine. -Oxycodone prn pain -Ativan prn withdrawal. //Tobacco Abuse: chronic -Pt counselled. -NicoDerm prn if needed. DVT Prophylaxis: SCD/Teds. Discharge Planning Discharge pending further clinical improvement, not yet ready for discharge. Nicolás Gloria MD May 30, 2017 09:00
[2017-05-30] MEDS: INSULIN DETEMIR 100 UNITS/ML VIAL SQ SCH ×2 (09:13→21:00)
[2017-05-30] MEDS ORDERED: CEFEPIME INJ 2,000 MG in SODIUM CHLORIDE 0.9% INJ 100 ML IV SCH (10:00)
--- NOTE | 2017-05-30 11:06 | MB ---
cc: FLORINA HAMILTON DATE OF ADMISSION 05/28/2017 DATE OF CONSULTATION 05/30/2017 REASON FOR CONSULTATION Right arm infection. HISTORY Chaka is a 36-year-old male. He has a history of diabetes and tobacco abuse. He presented to the ER complaining of approximately five or six days of right arm swelling and pain. He admits to IV drug use. He injects Roxicodone and oxycodone. He began having increasing swelling, redness and pain. He presented to the emergency room. The abscess was initially drained in the emergency department. He has been on IV antibiotics. He has had some improvement of swelling and redness. He continues to have pain around the medial aspect of his elbow. The pain is worse with movement. He does not control his diabetes well. PAST MEDICAL HISTORY 1. Adult-onset diabetes. 2. Tobacco abuse. 3. IV drug use. SURGERIES Hernia repair. ALLERGIES PROPOXYPHENE TYLENOL. MEDICATIONS Please see EMR for complete list of inpatient medications. He does take home insulin. FAMILY HISTORY Noncontributory. SOCIAL HISTORY The patient smokes a pack a day. He drinks alcohol occasionally. He does admit to IV drug use. REVIEW OF SYSTEMS The patient denies headache, visual changes, neck pain, chest pain, shortness of breath, abdominal pain, nausea, vomiting or recent weight loss or fever or chills. He complains of right arm pain, swelling and redness. PHYSICAL EXAMINATION GENERAL: The patient is a thin 36-year-old male in no acute distress. He is awake and alert. He is alert and oriented x3. He appears well-developed and well-nourished. VITAL SIGNS: Temperature 95.8, pulse 82, respirations 17, blood pressure 128/74, O2 sat 98% on room air. HEAD: The patient is normocephalic. Pupils are equal. NECK: Soft, nontender. Trachea is midline. ABDOMEN: Soft, nontender, nondistended. EXTREMITIES: Examination of the right arm reveals no pain with shoulder, wrist or finger motion. He has intact sensation in all fingers. He has good capillary refill in all fingers. Radial pulse is palpable. Examination of his elbow reveals minimal pain with gentle range of motion of the elbow. He does have a 1 cm open wound with packing in place. There is some purulent drainage. There is significant erythema around the medial aspect of the elbow. There is no fluctuance noted. Forearm compartments are soft. Examination of the left arm reveals no pain with shoulder, elbow or wrist motion. He has intact sensation in all fingers. He has good capillary refill in all fingers. Skin is intact. Examination of the bilateral lower extremities reveals no significant pain with hip, knee or ankle motion. He has intact sensation in both feet. Dorsalis pedis pulses are palpable. Skin is intact. LABORATORY DATA The patient is a white blood cell count of 13.7 with hematocrit of 33.5 and hemoglobin of 11.8. BUN is 12, creatinine is 0.75. LABORATORY DATA Microbiology labs with cultures from right arm reveal no growth to date. IMPRESSION 1. Diabetes. 2. Tobacco dependence. 3. IV drug use. 4. Right arm abscess. PLAN The treatment options were discussed with the patient. At this point the wound has been opened and packed. I would recommend a CT scan of the right elbow region to see if there is any further fluid collections. If the patient has further abscess or loculations around the elbow, he will need surgical irrigation and debridement of the right arm. If there are no loculations present, then he may continue packing and IV antibiotics. The packing should be changed daily. I will follow up with the patient after the CT scan is complete. All questions were answered. A mid-level provider in my office, nurse practitioner or PA, may see this patient on a follow-up basis and continue to implement the objective of this plan including: Starting or adjusting medications, injections of muscle, tendon, bursa or joints, cast application, orthotic or brace application, physical therapy, further radiographic studies including x-ray, MRI, CT, ultrasounds or bone scan, vascular studies, neurologic studies, or other specialist consultations, and proceeding with surgical management as appropriate. MD HOLGER Barros/RACQUEL /10:10 AM /10:35 AM
[2017-05-30] MEDS ORDERED: IOHEXOL 350 MG/ML 10 ML VIAL (for RAD DIAG) IVCONTRAST ONE (12:06)
[2017-05-30] MEDS ORDERED: MORPHINE SULFATE 4 MG/ML INJ IV PUSH ONE (13:15)
[2017-05-30] MEDS ORDERED: PHARMACY ORDERED LAB ONE (14:45)
[2017-05-30] MEDS: CEFEPIME INJ 2,000 MG in SODIUM CHLORIDE 0.9% INJ 100 ML IV SCH (17:57)
[2017-05-31] VITALS (10 sets, daily range): BP systolic 119–146; BP diastolic 66–82; PULSE 46–87; RESP 16–19; TEMP 97.6–98; O2SAT 97–100
[2017-05-31] MEDS: CEFEPIME INJ 2,000 MG in SODIUM CHLORIDE 0.9% INJ 100 ML IV SCH ×3 (00:40→17:06)
[2017-05-31] MEDS: SODIUM CHLOR 0.9% 1000 ML INJ 1,000 ML IV SCH ×2 (01:24→12:42)
[2017-05-31] MEDS ORDERED: POVIDONE IODINE 5% (ANTISEPSIS KIT) 4 APPLICATIONS EACH NARE PRN (02:15)
[2017-05-31] MEDS ORDERED: CHLORHEXIDINE GLUCONATE 2 % 1 PACK (2 CLOTHS) TOPICAL PRN (02:15)
[2017-05-31] MEDS ORDERED: SODIUM CHLORID 0.9% 500 ML IV PRN (02:15)
[2017-05-31] MEDS ORDERED: LACTATED RINGER'S 1000 ML IV PRN (02:15)
[2017-05-31] MEDS: VANCOMYCIN INJ 1,250 MG in SODIUM CHLOR 0.9% 250 ML INJ 250 ML IV SCH ×2 (03:20→15:32)
[2017-05-31] MEDS: INSULIN ASPART SUPPLEMENTAL SCALE SQ SCH ×4 (08:06→23:27)
[2017-05-31] MEDS: SODIUM CHLORIDE 0.9% FLUSH 10 ML FLUSH IV FLUSH SCH ×2 (08:09→23:14)
[2017-05-31] MEDS: DOCUSATE SODIUM 50 MG/SENNA 8.6 MG TAB PO SCH ×2 (08:09→23:14)
--- NOTE | 2017-05-31 08:31 | PD.ORT.PN ---
Subjective Subjective Remarks Swelling of infection to right elbow. History of being diabetic Objective Vitals Vital Signs Date Time Temp Pulse Resp B/P (MAP) Pulse Ox O2 Delivery O2 Flow Rate FiO2 05/31/17 08:03 97.7 75 16 129/76 (93) 100 05/31/17 05:30 97.8 68 18 120/70 (87) 97 05/31/17 04:47 58 05/31/17 00:18 68 05/30/17 20:32 74 05/30/17 16:13 76 05/30/17 16:00 96.7 83 17 134/80 (98) 98 05/30/17 12:00 96.0 100 17 120/77 (91) 98 05/30/17 11:46 91 I/O 05/30/17 05/30/17 05/30/17 05/31/17 05/31/17 05/31/17 07:00 15:00 23:00 07:00 15:00 23:00 Intake Total 1100 ml 362.5 ml Output Total 500 ml Balance 1100 ml 362.5 ml -500 ml Intake IV Total 1100 ml 362.5 ml Output Urine Total 500 ml # Voids 3 # Bowel Movements 0 Result Diagram: 05/29/17 0700 05/29/17 0700 Objective Remarks Right upper extremity: No pain with shoulder range of motion. Redness and warmth with skin breakdown over medial portion of the elbow. The erythema has spread to outside the outline drawn for border of erythema. Distally intact sensation. Full extension and flexion of all fingers. Good capillary refills Assessment & Plan Assessment and Plan Abscess and cellulitis of right elbow Nothing by mouth Surgery today for irrigation debridement After surgery antibiotics will continue Sign consents Sd Montes Jr. May 31, 2017 08:31
[2017-05-31] MEDS: INSULIN DETEMIR 100 UNITS/ML VIAL SQ SCH ×2 (08:44→23:27)
--- NOTE | 2017-05-31 09:31 | RADRPT ---
EXAM DATE/TIME: 05/30/2017 11:55 [facility] COMPARISON: No previous studies available for comparison. INDICATIONS : Possible abscess right elbow. Redness and swelling mid humerus to elbow IV CONTRAST: 75 cc Omnipaque 350 (iohexol) IV RADIATION DOSE: 16.28 CTDIvol (mGy) MEDICAL HISTORY : Hypertension. Diabetes mellitus type 2. SURGICAL HISTORY : None. ENCOUNTER: Initial ACUITY: 3 days PAIN SCALE: 5/10 LOCATION: Right elbow TECHNIQUE: Volumetric scanning of the elbow was performed. Using automated exposure control and adjustment of t he mA and/or kV according to patient size, radiation dose was kept as low as reasonably achievable to obtain optimal diagnostic quality images. DICOM format image data is available electronically for r eview and comparison. FINDINGS: Motion artifact degrades the study. There is stranding of the subcutaneous fat involving the upper ar m along its more medial aspect. There is no abscess. No cortical destruction involving the humerus. N o lucency involving the humerus. No fracture or dislocation. Major vasculature structures are unremar kable. No radiopaque foreign body. CONCLUSION: 1. Cellulitis. No abscess or CT evidence to suggest osteomyelitis. Lion Galdamez Jr., MD on May 31, 2017 at 9:24 Board Certified Radiologist. This report was verified electronically.
[2017-05-31] MEDS ORDERED: PHARMACY ORDERED LAB ONE ×2 (09:45→14:45)
--- NOTE | 2017-05-31 11:19 | HHI.PR ---
Subjective Remarks Patient reports that pain in right elbow continues. Denies any chest pain shortness of breath. Denies any nausea or vomiting. Objective Vital Signs Date Time Temp Pulse Resp B/P (MAP) Pulse Ox O2 Delivery O2 Flow Rate FiO2 05/31/17 08:03 97.7 75 16 129/76 (93) 100 05/31/17 05:30 97.8 68 18 120/70 (87) 97 05/31/17 04:47 58 05/31/17 00:18 68 05/30/17 20:32 74 05/30/17 16:13 76 05/30/17 16:00 96.7 83 17 134/80 (98) 98 05/30/17 12:00 96.0 100 17 120/77 (91) 98 05/30/17 11:46 91 I/O 05/30/17 05/30/17 05/30/17 05/31/17 05/31/17 05/31/17 07:00 15:00 23:00 07:00 15:00 23:00 Intake Total 1100 ml 362.5 ml Output Total 500 ml Balance 1100 ml 362.5 ml -500 ml Intake IV Total 1100 ml 362.5 ml Output Urine Total 500 ml # Voids 3 # Bowel Movements 0 Result Diagram: 05/29/17 0700 05/29/17 0700 Objective Remarks GENERAL: Patient sitting up in chair. Appears uncomfortable. Alert and oriented 3. No change on exam today. SKIN: Warm and dry. HEAD: Normocephalic. EYES: No scleral icterus. No injection or drainage. NECK: Supple, trachea midline. No JVD. CARDIOVASCULAR: Regular rate and rhythm without murmurs, gallops, or rubs. RESPIRATORY: Breath sounds equal bilaterally. No accessory muscle use. GASTROINTESTINAL: Abdomen soft, non-tender, nondistended. MUSCULOSKELETAL: No cyanosis, or edema. BACK: Nontender without obvious deformity. No CVA tenderness. A/P Assessment and Plan 36-year-old male with PMH of DM, Tobacco Abuse and IVDU who is brought to the ER by EMS secondary to complaints of right arm pain and swelling after injecting //Sepsis with RUE Abscess: s/p injection w/ Oxy/Annie, now w/ abscess. Meets sepsis criteria with leukocytosis WBC 15.1K and tachycardia, source-abscess. -S/p I&D in ER around midnight 05/29. -Change packing q24h, wound care orders placed -[employer] to provide IV pole with sling for elevation -Wound and Blood Cultures pending, continue to follow -Continue antibiotics with IV Vanco and IV Cefepime -Monitor for improvement. = Slightly worsening erythema beyond the drawn borders. Order CT right upper extremity. Continue vancomycin. Adjust cefepime dosing. Orthotic consult for abscess drainage. 05/31. Discussed with Nurse. Improving leukocytosis 13.7. No Needs for Surgery at This Time. Continue on Antibiotics, Follow-Up Wound Culture with Gram-Positive Cocci. //DM: Uncontrolled secondary to non-compliance. BG 233 upon arrival. -Sliding scale w/ Accu-Cheks -Check Hgb A1c. = Uncontrolled. Glucose 500 this morning. We will increase sliding scale to moderate, and Levemir. 1 L normal saline bolus. = 05/31. Glucose in the 200s this morning. Continue sliding scale, diabetic diet, Levemir. //IVDU: Admits to IVDU w/ Oxy/Annie, h/o Cocaine. -Oxycodone prn pain -Ativan prn withdrawal. //Tobacco Abuse: chronic -Pt counselled. -NicoDerm prn if needed. DVT Prophylaxis: SCD/Teds. Discharge Planning Pending wound culture antibiotic sensitivities. Patient will need to follow with primary care or wound care for dressing, packing of right upper extremity abscess Appreciate case management assistance. Nicolás Gloria MD May 31, 2017 11:19
[2017-05-31] MEDS ORDERED: VANCOMYCIN 500 MG/NS 100 ML IV ONE ×2 (16:30)
[2017-06-01] VITALS (8 sets, daily range): BP systolic 112–129; BP diastolic 57–82; PULSE 56–82; RESP 16–18; TEMP 98–98.7; O2SAT 98–100
[2017-06-01] MEDS: CEFEPIME INJ 2,000 MG in SODIUM CHLORIDE 0.9% INJ 100 ML IV SCH ×3 (00:18→16:06)
[2017-06-01] MEDS: VANCOMYCIN INJ 1,250 MG in SODIUM CHLOR 0.9% 250 ML INJ 250 ML IV SCH ×3 (01:08→17:30)
[2017-06-01] MEDS: SODIUM CHLOR 0.9% 1000 ML INJ 1,000 ML IV SCH ×3 (04:15→17:24)
--- NOTE | 2017-06-01 08:05 | EKG ---
Date Performed: 05/31/2017 Time Performed: 03:25:14 PTAGE: 36 years EKG: SINUS BRADYCARDIA Likely limb lead reversal Recommend repeat EKG ABNORMAL ECG NO PREVIOUS TRACING DOCTOR: Luis M Price Interpretating Date/Time 06/01/2017 08:05:01
[2017-06-01] MEDS: SODIUM CHLORIDE 0.9% FLUSH 10 ML FLUSH IV FLUSH SCH ×2 (08:46→21:52)
[2017-06-01] MEDS: DOCUSATE SODIUM 50 MG/SENNA 8.6 MG TAB PO SCH ×2 (08:47→21:52)
[2017-06-01] MEDS: INSULIN ASPART SUPPLEMENTAL SCALE SQ SCH ×4 (08:56→22:59)
[2017-06-01] MEDS: INSULIN DETEMIR 100 UNITS/ML VIAL SQ SCH (08:56)
--- NOTE | 2017-06-01 10:18 | HHI.PR ---
Subjective Remarks Patient seen this morning around 730. He reports pain is under control. Denies any chest pain or shortness of breath. Objective Vital Signs Date Time Temp Pulse Resp B/P (MAP) Pulse Ox O2 Delivery O2 Flow Rate FiO2 06/01/17 07:46 98.0 56 16 115/82 (93) 100 06/01/17 07:00 61 06/01/17 05:16 14 06/01/17 05:06 98.4 68 18 113/57 (75) 98 06/01/17 04:23 73 05/31/17 21:14 71 05/31/17 19:26 98.0 87 19 119/66 (83) 100 05/31/17 16:18 55 05/31/17 14:29 97.6 64 16 146/82 (103) 100 05/31/17 11:30 46 I/O 05/31/17 05/31/17 05/31/17 06/01/17 06/01/17 06/01/17 07:00 15:00 23:00 07:00 15:00 23:00 Intake Total 362.5 ml 262.5 ml Output Total 500 ml 1800 ml Balance 362.5 ml -500 ml 262.5 ml -1800 ml Intake IV Total 362.5 ml 262.5 ml Output Urine Total 500 ml 1800 ml # Voids 3 # Bowel Movements 0 Result Diagram: 05/29/17 0700 05/29/17 0700 Objective Remarks GENERAL: Patient lying in bed. Appears comfortable. Alert and oriented 3. No change on exam today. SKIN: Warm and dry. HEAD: Normocephalic. EYES: No scleral icterus. No injection or drainage. NECK: Supple, trachea midline. No JVD. CARDIOVASCULAR: Regular rate and rhythm without murmurs, gallops, or rubs. RESPIRATORY: Breath sounds equal bilaterally. No accessory muscle use. GASTROINTESTINAL: Abdomen soft, non-tender, nondistended. MUSCULOSKELETAL: No cyanosis, or edema. BACK: Nontender without obvious deformity. No CVA tenderness. A/P Assessment and Plan 36-year-old male with PMH of DM, Tobacco Abuse and IVDU who is brought to the ER by EMS secondary to complaints of right arm pain and swelling after injecting //Sepsis with RUE Abscess: s/p injection w/ Oxy/Annie, now w/ abscess. Meets sepsis criteria with leukocytosis WBC 15.1K and tachycardia, source-abscess. -S/p I&D in ER around midnight 05/29. -Change packing q24h, wound care orders placed -[employer] to provide IV pole with sling for elevation -Wound and Blood Cultures pending, continue to follow -Continue antibiotics with IV Vanco and IV Cefepime -Monitor for improvement. = Slightly worsening erythema beyond the drawn borders. Order CT right upper extremity. Continue vancomycin. Adjust cefepime dosing. Orthotic consult for abscess drainage. 05/31. Discussed with Nurse. Improving leukocytosis 13.7. No Needs for Surgery at This Time. Continue on Antibiotics, Follow-Up Wound Culture with Gram-Positive Cocci. = 06/01. Repeat labs pending. Follow-up wound culture results. //DM: Uncontrolled secondary to non-compliance. BG 233 upon arrival. -Sliding scale w/ Accu-Cheks -Check Hgb A1c. = Uncontrolled. Glucose 500 this morning. We will increase sliding scale to moderate, and Levemir. 1 L normal saline bolus. = 05/31. Glucose in the 200s this morning. Continue sliding scale, diabetic diet, Levemir. = 06/01. Glucose in the 400s in the morning. Will check urine drug screen. Increase Levemir. Continue to monitor //IVDU: Admits to IVDU w/ Oxy/Annie, h/o Cocaine. -Oxycodone prn pain -Ativan prn withdrawal. //Tobacco Abuse: chronic -Pt counselled. -NicoDerm prn if needed. DVT Prophylaxis: SCD/Teds. Discharge Planning Pending wound culture antibiotic sensitivities. Patient will need to follow with primary care or wound care for dressing, packing of right upper extremity abscess Appreciate case management assistance. Nicolás Gloria MD Jun 01, 2017 10:18
[2017-06-01] MEDS ORDERED: SODIUM CHLORID 0.9% 500 ML INJ 500 ML IV ONE (10:30)
[2017-06-01 11:48] LABS: AUTOMATED NEUTROPHIL # 2.2 TH/MM3 (1.8-7.7); EOSINOPHIL # 0.3 TH/MM3 (0-0.4); HEMATOCRIT 35.6 % (39.0-51.0); HEMOGLOBIN 12.5 GM/DL (13.0-17.0); MEAN CELL VOLUME 89.8 FL (80.0-100.0); MEAN CORPUSCULAR HEMOGLOBIN 31.6 PG (27.0-34.0); MEAN CORPUSCULAR HGB CONC 35.2 % (32.0-36.0); MONO % 12.8 % (0.0-8.0); MONOCYTE # 0.7 TH/MM3 (0-0.9); NEUT % 42.2 % (16.0-70.0); PLATELET COUNT 342 TH/MM3 (150-450); RED BLOOD COUNT 3.96 MIL/MM3 (4.50-5.90); RED CELL DISTRIBUTION WIDTH 11.7 % (11.6-17.2); WHITE BLOOD COUNT 5.2 TH/MM3 (4.0-11.0)
[2017-06-01 12:16] LABS: BICARBONATE 29.9 MEQ/L (21.0-32.0); CALCIUM 8.3 MG/DL (8.5-10.1); CREATININE 0.71 MG/DL (0.60-1.30)
[2017-06-01] MEDS ORDERED: INSULIN DETEMIR 100 UNITS/ML VIAL SQ SCH ×2 (21:00)
[2017-06-02] VITALS: BP 121/68; PULSE 84; RESP 18; TEMP 98.4; O2SAT 98
[2017-06-02 00:49] VITALS: PULSE 59
[2017-06-02] MEDS: CEFEPIME INJ 2,000 MG in SODIUM CHLORIDE 0.9% INJ 100 ML IV SCH ×3 (01:16→16:00)
[2017-06-02] MEDS: VANCOMYCIN INJ 1,250 MG in SODIUM CHLOR 0.9% 250 ML INJ 250 ML IV SCH ×3 (02:16→16:00)
[2017-06-02 04:00] VITALS: BP 134/78; PULSE 84; RESP 18; TEMP 98.8; O2SAT 98
[2017-06-02] MEDS ORDERED: PHARMACY ORDERED LAB ONE (07:45)
[2017-06-02] MEDS: INSULIN ASPART SUPPLEMENTAL SCALE SQ SCH ×3 (08:00→17:56)
[2017-06-02 08:01] VITALS: PULSE 52
[2017-06-02] MEDS: DOCUSATE SODIUM 50 MG/SENNA 8.6 MG TAB PO SCH (08:32)
[2017-06-02] MEDS: SODIUM CHLORIDE 0.9% FLUSH 10 ML FLUSH IV FLUSH SCH (08:32)
[2017-06-02] MEDS: SODIUM CHLOR 0.9% 1000 ML INJ 1,000 ML IV SCH (10:21)
[2017-06-02] MEDS ORDERED: CEPH-460 PO (11:54)
[2017-06-02 12:25] VITALS: BP 122/68; PULSE 65; RESP 20; TEMP 98; O2SAT 96
[2017-06-02] MEDS ORDERED: AUGM875T3 PO (13:30)
[2017-06-02] MEDS ORDERED: BACT800T5 PO (13:30)
--- NOTE | 2017-06-02 13:33 | HHI.FF ---
Face to Face Verification Diagnosis: (1) Abscess of right arm (2) DM (diabetes mellitus) Home Health Nursing Order: Wound care and dressing changes Instructions: right elbow abscess I have seen patient Chaka Yost on 06/02/17. My clinical findings support the need for the requested home health care services because: Limited ability to care for self I certify that my clinical findings support that this patient is homebound because: Need for psychosocial assistance Nicolás Gloria MD Jun 02, 2017 13:33
--- NOTE | 2017-06-02 13:43 | HHI.PR ---
Subjective Remarks Patient seen this morning around 11 AM. Says he is feeling all right. Reports pain is controlled. Denies any chest pain or shortness of breath. Objective Vital Signs Date Time Temp Pulse Resp B/P (MAP) Pulse Ox O2 Delivery O2 Flow Rate FiO2 06/02/17 12:25 98.0 65 20 122/68 (86) 96 06/02/17 08:01 52 06/02/17 04:00 98.8 84 18 134/78 (96) 98 06/02/17 03:31 15 06/02/17 00:49 59 06/02/17 00:00 98.4 84 18 121/68 (85) 98 06/01/17 21:47 98.0 74 18 118/74 (89) 98 06/01/17 20:26 61 06/01/17 16:18 98.7 68 18 129/64 (85) 100 I/O 06/01/17 06/01/17 06/01/17 06/02/17 06/02/17 06/02/17 07:00 15:00 23:00 07:00 15:00 23:00 Output Total 1800 ml 2000 ml Balance -1800 ml -2000 ml Output Urine Total 1800 ml 2000 ml Result Diagram: 06/01/17 1128 06/01/17 1128 Objective Remarks GENERAL: Patient lying in bed. Appears comfortable. Alert and oriented 3. Again, no change on exam today. SKIN: Warm and dry. HEAD: Normocephalic. EYES: No scleral icterus. No injection or drainage. NECK: Supple, trachea midline. No JVD. CARDIOVASCULAR: Regular rate and rhythm without murmurs, gallops, or rubs. RESPIRATORY: Breath sounds equal bilaterally. No accessory muscle use. GASTROINTESTINAL: Abdomen soft, non-tender, nondistended. MUSCULOSKELETAL: No cyanosis, or edema. Right upper extremity abscess dressed, with no surrounding erythema. BACK: Nontender without obvious deformity. No CVA tenderness. A/P Assessment and Plan 36-year-old male with PMH of DM, Tobacco Abuse and IVDU who is brought to the ER by EMS secondary to complaints of right arm pain and swelling after injecting //Sepsis with RUE Abscess: s/p injection w/ Oxy/Annie, now w/ abscess. Meets sepsis criteria with leukocytosis WBC 15.1K and tachycardia, source-abscess. -S/p I&D in ER around midnight 05/29. -Change packing q24h, wound care orders placed -[employer] to provide IV pole with sling for elevation -Wound and Blood Cultures pending, continue to follow -Continue antibiotics with IV Vanco and IV Cefepime -Monitor for improvement. = Slightly worsening erythema beyond the drawn borders. Order CT right upper extremity. Continue vancomycin. Adjust cefepime dosing. Orthotic consult for abscess drainage. 05/31. Discussed with Nurse. Improving leukocytosis 13.7. No Needs for Surgery at This Time. Continue on Antibiotics, Follow-Up Wound Culture with Gram-Positive Cocci. = 06/01. Repeat labs pending. Follow-up wound culture results. =06/02 Anaerobic gram-positive cocci negative for beta-lactam. I am not certain this is the primary cause of patient's abscess, however beta-lactamase negativity is encouraging. We will discharge home on Bactrim, Augmentin. Follow-up with wound care //DM: Uncontrolled secondary to non-compliance. BG 233 upon arrival. -Sliding scale w/ Accu-Cheks -Check Hgb A1c. = Uncontrolled. Glucose 500 this morning. We will increase sliding scale to moderate, and Levemir. 1 L normal saline bolus. = 05/31. Glucose in the 200s this morning. Continue sliding scale, diabetic diet, Levemir. = 06/01. Glucose in the 400s in the morning. Will check urine drug screen. Increase Levemir. Continue to monitor = 06/02. She did have hypoglycemia this morning with glucose in the 50s. Patient eating Mc[employer] this morning, says its first time. Stressed compliance with diabetic diet and insulin regimen at home. //IVDU: Admits to IVDU w/ Oxy/Annie, h/o Cocaine. -Oxycodone prn pain -Ativan prn withdrawal. //Tobacco Abuse: chronic -Pt counselled. -NicoDerm prn if needed. DVT Prophylaxis: SCD/Teds. Discharge Planning Discharge home on Bactrim and Augmentin to complete treatment course. Patient will need to follow with primary care or wound care for dressing, packing of right upper extremity abscess Appreciate case management assistance. Nicolás Gloria MD Jun 02, 2017 1:43 pm
--- NOTE | 2017-06-02 13:46 | HHI.DS ---
Discharge Summary Admission Date May 29, 2017 at 12:12 pm Discharge Date: Jun 02, 2017 Admitting Diagnosis (1) Abscess of right arm ICD Code: L02.413 - Cutaneous abscess of right upper limb (2) IVDU (intravenous drug user) ICD Code: F19.90 - Other psychoactive substance use, unspecified, uncomplicated (3) DM (diabetes mellitus) ICD Code: E11.9 - Type 2 diabetes mellitus without complications (4) Tobacco abuse ICD Code: Z72.0 - Tobacco use Procedures Right upper extremity abscess incision and drainage. Brief History - From Admission This is a 36-year-old male with PMH of DM, Tobacco Abuse and IVDU who is brought to the ER by EMS secondary to complaints of right arm pain and swelling. Initially reported he was bitten by a snake, however later admitted he injects Oxycodone and Annie. States pain is constant, severe, 8/10, non- radiating, worse w/ movement. Denies fever, chills. On arrival, BP 122/71, HR 84, O2 sat 98% on RA, Temp 99.5. WBC 15.1. GFR 85. BS 233. Reports non- compliance w/ home insulin. S/p I&D in ER, Vanc/Ursula. CBC/BMP: 06/01/17 1128 06/01/17 1128 Significant Findings Laboratory Tests Test 05/30/17 15:15 05/31/17 15:00 06/01/17 10:27 06/01/17 11:28 Vancomycin Level Trough 4.4 MCG/ML (5.0-10.0) Red Blood Count 3.96 MIL/MM3 (4.50-5.90) Hemoglobin 12.5 GM/DL (13.0-17.0) Hematocrit 35.6 % (39.0-51.0) Monocytes (%) (Auto) 12.8 % (0.0-8.0) Eosinophils (%) (Auto) 5.0 % (0.0-4.0) Random Glucose 310 MG/DL (74-106) Calcium Level 8.3 MG/DL (8.5-10.1) Test 06/02/17 08:26 Vancomycin Level Trough 17.0 MCG/ML (5.0-10.0) Imaging Last Impressions Upper Extremity CT 05/30/17 0000 Signed Impressions: Service Date/Time: Tuesday, May 30, 2017 11:55 - CONCLUSION: 1. Cellulitis. No abscess or CT evidence to suggest osteomyelitis. Lion Galdamez Jr., MD PE at Discharge GENERAL: Well-nourished, well-developed male patient in NAD. SKIN: Warm and dry. No rash. RUE abscess with packing in place, significant surrounding edema and erythema extending to the mid forearm and mid upper arm; diffusely tender to palpation. HEENT: Normocephalic. Atraumatic. Pupils equal and round. Mucous membranes pink and moist. CARDIOVASCULAR: Regular rate and rhythm. S1, S2 noted. No murmur appreciated. RESPIRATORY: No accessory muscle use. Clear to auscultation. Breath sounds equal bilaterally. GASTROINTESTINAL: Abdomen soft, non-tender, nondistended. Normoactive bowel sounds x4. MUSCULOSKELETAL: No obvious deformities. Extremities without clubbing, cyanosis , or edema. Full ROM of right wrist and elbow. NEUROLOGICAL: Awake and alert. No obvious cranial nerve deficits. Motor grossly within normal limits. Normal speech. PSYCHIATRIC: Appropriate mood and affect; insight and judgment normal. Hospital Course Patient presented with leukocytosis, tachycardia right upper extremity elbow abscess. CT showing cellulitis, no evidence of osteomyelitis. Patient underwent incision and drainage in the ER with culture eventually growing out anaerobic gram-positive bacilli which is beta-lactamase sensitive. Pain and inflammation improved with IV antibiotics, and white count normalized. Patient will be sent home on Augmentin and Bactrim to complete treatment course. Follow -up with primary care, wound care for right elbow abscess. Hospitalization was complicated by hyperglycemia, with blood sugars up to the 500s. Patient has a long history of brittle diabetes. He was found to have outside food in the room at times. Stressed compliance with diabetic regimen as outpatient. Follow-up primary care. For probably summary from most recent progress note, please see below. 36-year-old male with PMH of DM, Tobacco Abuse and IVDU who is brought to the ER by EMS secondary to complaints of right arm pain and swelling after injecting //Sepsis with RUE Abscess: s/p injection w/ Oxy/Annie, now w/ abscess. Meets sepsis criteria with leukocytosis WBC 15.1K and tachycardia, source-abscess. -S/p I&D in ER around midnight 05/29. -Change packing q24h, wound care orders placed -[employer] to provide IV pole with sling for elevation -Wound and Blood Cultures pending, continue to follow -Continue antibiotics with IV Vanco and IV Cefepime -Monitor for improvement. = Slightly worsening erythema beyond the drawn borders. Order CT right upper extremity. Continue vancomycin. Adjust cefepime dosing. Orthotic consult for abscess drainage. 05/31. Discussed with Nurse. Improving leukocytosis 13.7. No Needs for Surgery at This Time. Continue on Antibiotics, Follow-Up Wound Culture with Gram-Positive Cocci. = 06/01. Repeat labs pending. Follow-up wound culture results. = Anaerobic gram-positive cocci negative for beta-lactam. I am not certain this is the primary cause of patient's abscess, however beta-lactamase negativity is encouraging. We will discharge home on Bactrim, Augmentin. Follow-up with wound care //DM: Uncontrolled secondary to non-compliance. BG 233 upon arrival. -Sliding scale w/ Accu-Cheks -Check Hgb A1c. = Uncontrolled. Glucose 500 this morning. We will increase sliding scale to moderate, and Levemir. 1 L normal saline bolus. = 05/31. Glucose in the 200s this morning. Continue sliding scale, diabetic diet, Levemir. = 06/01. Glucose in the 400s in the morning. Will check urine drug screen. Increase Levemir. Continue to monitor = 06/02. She did have hypoglycemia this morning with glucose in the 50s. Patient eating [employer] this morning, says its first time. Stressed compliance with diabetic diet and insulin regimen at home. //IVDU: Admits to IVDU w/ Oxy/Annie, h/o Cocaine. -Oxycodone prn pain -Ativan prn withdrawal. //Tobacco Abuse: chronic -Pt counselled. -NicoDerm prn if needed. DVT Prophylaxis: SCD/Teds. Pt Condition on Discharge: Good Discharge Disposition: Discharge Home Discharge Time: > 30 minutes Discharge Instructions DIET: Follow Instructions for: Diabetic Diet Activities you can perform: Regular-No Restrictions Other Activity Instructions: keep right elbow clean Follow up Referrals: PCP Follow-up - 2-3 Days with Winter Florentino MD New Medications: Amoxicillin-Clavulanate (Augmentin) 875-125 Mg Tab 1 TAB PO BID for Infection for 14 Days, #28 TAB 0 Refills Sulfamethoxazole-Trimethoprim (Bactrim DS) 800-160 Mg Tab 1 TAB PO BID for Infection for 14 Days, #28 TAB 0 Refills Continued Medications: Alprazolam (Xanax) 0.5 Mg Tab 0.5 MG PO Q6H PRN for ANXIETY, TAB 0 Refills Hydrocodone-Acetaminophen (Hydrocodone-Acetaminophen) 7.5 Mg-325 Mg Tab 1 TAB PO Q4H PRN for PAIN, TAB 0 Refills Insulin Human Regular Inj (Novolin R Inj) 1,000 Unit/10 Ml Vial 0 SQ DIRECTED for Blood Sugar Management, #10 ML 0 Refills Sliding Scale As Directed. Nicolás Gloria MD Jun 02, 2017 1:46 pm
[2017-06-02] MEDS ORDERED: NORC5TAB PO (15:06)
[2017-06-02] MEDS ORDERED: INSULIN DETEMIR 100 UNITS/ML VIAL SQ SCH (21:00)
[2017-06-04] MEDS ORDERED: PHARMACY ORDERED LAB ONE (07:45)
== END 2017-06-02 18:50 | disposition home or self-care (01) | DRG 872 ==
LOC: NEPC 18:56 → NEDA 05-29 00:24 → NEPFCDU 05-29 01:40 → OBSVTOIN 05-29 12:12
PROVIDERS: ADMIT Internal Medicine; ATTEND Internal Medicine
PROC: 0H9BXZZ Drainage of Right Upper Arm Skin, External Approach (ICD-10-PCS; principal; 2017-05-28)
DX: A41.9 Sepsis, unspecified organism (principal); E10.649 Type 1 diabetes mellitus with hypoglycemia without coma; L02.413 Cutaneous abscess of right upper limb; L03.113 Cellulitis of right upper limb; E10.65 Type 1 diabetes mellitus with hyperglycemia; I10 Essential (primary) hypertension; F41.9 Anxiety disorder, unspecified; F17.210 Nicotine dependence, cigarettes, uncomplicated; F19.10 Other psychoactive substance abuse, uncomplicated; G89.4 Chronic pain syndrome; R00.0 Tachycardia, unspecified; Z79.4 Long term (current) use of insulin; Z91.14 Patient's other noncompliance with medication regimen
CPT/HCPCS: 73201; 80048; 80053; 80202; 80307; 82010; 82948; 83036; 85025; 87040; 87070; 87185; 87205; 93005; J0692; J1815; J1885; J2270; J2543; J3370; J7030; J7040; J7050; Q9967

== ENCOUNTER 2017-10-16 05:58 | Inpatient (IN) ==
[2017-10-16] MEDS ORDERED: Sod Chloride 0.9% Inj 1,000 ML IV.SIG ONE ×3 (06:33→07:45)
--- NOTE | 2017-10-16 06:45 | ED ---
HPI General Chief complaint: Weakness Stated complaint: Diabetic Time Seen by Provider: 10/16/17 06:28 Source: patient Mode of arrival: ambulatory Limitations: no limitations History of Present Illness HPI narrative: 37-year-old male complains of abdominal cramping and nausea vomiting. Patient has history of diabetes. Patient states that he ran out of his insulin recently. Patient was seen in emergency room recently and was treated for hyperglycemia. Patient however has not had any insulin since then. Patient states that he has persistent abdominal cramping with nausea vomiting for the past several days. Patient denies any headache. Patient denies any chest pain or shortness of breath. Patient states abdominal pain and cramping pain diffuse over the abdomen. Patient denies any pain radiation. Patient has history of chronic back pain is not not new. Patient is a smoker. Patient denies any alcohol or illicit drug abuse. Onset (ago): day(s) Location: abdomen Radiation: non-radiation Quality: dull Pain Consistency: constant Relieving factors: none Exacerbating factors: none Associated symptoms: malaise and nausea/vomiting Treatments prior to arrival: none Related Data Home Medications Medication Instructions Recorded Confirmed alprazolam 1 mg PO BID 10/16/17 10/16/17 hydrocodone-acetaminophen Q4-6M PRN 10/16/17 Previous Rx's Medication Instructions Recorded Novolin N NPH U-100 Insulin 12 units INJ BID #60 unit 10/17/17 Novolin R Regular U-100 Insuln See Label Instructions .ROUTE 10/17/17 .COMPLEX #100 ml Allergies Allergy/AdvReac Type Severity Reaction Status Date / Time acetaminophen Allergy Severe Rash Verified 10/14/17 11:50 propoxyphene Allergy Severe Rash Verified 10/14/17 11:57 Review of Systems Except as stated in HPI: all other systems reviewed are negative [facility] Medical History Medical History Diabetes (Acute) Surgical History Surgical History No history of previous surgery (Acute) Social History Social History Substance History: Active Abuse Second Hand Smoke Exposure: No Smoking Status: Current every day smoker Tobacco Type: Cigarettes How Often Do You Have a Drink Containing Alcohol: Monthly or less Recent Travel in [facility] within the Last 8 Weeks: No Recent Out of Country Travel within the Last 8 Weeks: No Exam Narrative Exam Narrative: GENERAL: Well-nourished, well-developed patient. SKIN: Focused skin assessment warm/dry. HEAD: Normocephalic. EYES: No scleral icterus. No injection or drainage. NECK: Supple, trachea midline. No JVD or lymphadenopathy. CARDIOVASCULAR: Regular rate and rhythm without murmurs, gallops, or rubs. RESPIRATORY: Breath sounds equal bilaterally. No accessory muscle use. GASTROINTESTINAL: Abdomen soft, nondistended. Patient has mild to moderate diffuse tenderness over the abdomen. No rebound tenderness. No mass. MUSCULOSKELETAL: No cyanosis, or edema. BACK: Nontender without obvious deformity. No CVA tenderness. Course Hospital Course: Patient was put on monitor and IV established. Normal saline solution 1 L IV bolus. Zofran 4 mg ODT. Initial Documented Vital Signs Temperature 97.9 F 10/16/17 06:07 Pulse Rate 105 H 10/16/17 06:07 Respiratory Rate 28 H 10/16/17 06:07 Blood Pressure 112/68 10/16/17 06:07 Pulse Oximetry 100 10/16/17 06:07 Last Documented Vital Signs Temperature 98.4 F 10/17/17 13:00 Pulse Rate 88 10/17/17 14:00 Respiratory Rate 16 10/17/17 14:00 Blood Pressure 128/78 10/17/17 14:00 Pulse Oximetry 99 10/17/17 13:00 NIH Stroke Scale NIH Stroke Scale Level of Consciousness: 0-Alert Orientation Questions: 0-Answers both correct Responds to Commands: 0-Both tasks correct Gaze Eye Movement: 0-Horizontal movement WNL Visual Graham: 0-No visual field defect Facial Movement: 0-Normal Motor Functions Arm LEFT: 0-No drift Motor Functions Arm RIGHT: 0-No drift Motor Functions Leg LEFT: 0-No drift Motor Functions Leg RIGHT: 0-No drift Limb Ataxia: 0-No ataxia Sensory Loss: 0-No sensory loss Best Language: 0-Normal Articulation: 0-Normal Extinction or Inattention Sensory: 0-Absent Total: 0 Medical Decision Making Lab Data Result diagrams: 10/17/17 04:27 10/17/17 11:45 Lab Results 10/16/17 10/16/17 10/16/17 Range/Units 07:15 07:15 07:41 CBC w Diff Auto diff final WBC 20.1 H (4.0-11.0) th/mm3 RBC 5.14 (4.50-5.90) mil/mm3 Hgb 16.3 (13.0-17.0) gm/dL Hct 48.8 (39.0-51.0) % MCV 95.0 (80.0-100.0) fL MCH 31.7 (27.0-34.0) pg MCHC 33.3 (32.0-36.0) % RDW 13.0 (11.6-17.2) % Plt Count 226 (150-450) th/mm3 MPV 10.5 (7.0-11.0) fL Neut % (Auto) 85.2 H (16.0-70.0) % Lymph % (Auto) 8.8 L (9.0-44.0) % Benson % (Auto) 4.8 (0.0-8.0) % Eos % (Auto) 0.1 (0.0-4.0) % Baso % (Auto) 1.1 (0.0-2.0) % Neut # (Auto) 17.1 H (1.8-7.7) th/mm3 Lymph # (Auto) 1.8 (1.0-4.8) th/mm3 Benson # (Auto) 1.0 H (0.0-0.9) th/mm3 Eos # (Auto) 0.0 (0.0-0.4) th/mm3 Baso # (Auto) 0.2 (0.0-0.2) th/mm3 WBC Differential . PT (9.8-11.6) sec INR Ratio Puncture Site Patient Temperature O2 Saturation (90-100) % ABG pH (7.380-7.420) ABG pCO2 (38-42) mmHg ABG pO2 (61-120) mmHg ABG HCO3 (22-26) mmol/L ABG O2 Content (12.0-20.0) Vol % ABG Base Excess (-2-2) mmol/L ABG Methemoglobin (0-2) % Iain Test Cap Carboxyhemoglobin (0-4) % Hemoglobin (12.0-16.0) G/DL O2 Delivery Device Inspired O2 % Critical Value Sodium 131 L (136-145) meq/L Potassium 5.8 H (3.5-5.1) meq/L Chloride 91 L (98-107) meq/L Carbon Dioxide 6.6 L (21.0-32.0) meq/L Anion Gap 33 H (5-15) meq/L BUN 30 H (7-18) mg/dL Creatinine 1.60 H (0.60-1.30) mg/dL Estimated GFR 49 L (>89) mL/min POC Glucose (68-110) mg/dl Random Glucose 764 H* (74-106) mg/dL Lactic Acid (0.4-2.0) mmol/L Calcium 9.2 (8.5-10.1) mg/dL Phosphorus 8.8 H (2.5-4.9) mg/dL Magnesium 2.5 (1.5-2.5) mg/dL Total Bilirubin 0.6 (0.2-1.0) mg/dL AST 32 (15-37) U/L ALT 46 (12-78) U/L Alkaline Phosphatase 167 H (45-117) U/L Troponin I Less than 0.02 L (0.02-0.05) ng/mL Total Protein 9.0 H (6.4-8.2) g/dL Albumin 4.4 (3.4-5.0) g/dL Beta-Hydroxybutyric Acd 14.93 H (0.00-0.39) mmol/L Ur Collection Type Clean catch Urine Color Yellow (Yellw/Straw) Urine Clarity Clear (Clear) Urine pH 5.0 (5.0-8.5) Ur Specific [place] 1.025 (1.002-1.035) Urine Protein Trace (Neg-Trace) mg/dL Urine Glucose (UA) 1000 or greater (Negative) mg/dL Urine Ketones 80 or greater H (Negative) mg/dL Urine Occult Blood Trace H (Negative) Urine Nitrate Negative (Negative) Urine Bilirubin Negative (Negative) Urine Urobilinogen 0.2 (Less than 2) mg/dL Ur Leukocyte Esterase Negative (Negative) Urine RBC 0-3 (0-3) /hpf Ur Squamous Epith Cells 0-5 (0-5) /hpf Urine Culture Comments Culture not ind Nasal Screen MRSA (PCR) (Negative) 07/01/18 07/01/18 07/01/18 Range/Units 08:03 10:19 11:11 CBC w Diff WBC (4.0-11.0) th/mm3 RBC (4.50-5.90) mil/mm3 Hgb (13.0-17.0) gm/dL Hct (39.0-51.0) % MCV (80.0-100.0) fL MCH (27.0-34.0) pg MCHC (32.0-36.0) % RDW (11.6-17.2) % Plt Count (150-450) th/mm3 MPV (7.0-11.0) fL Neut % (Auto) (16.0-70.0) % Lymph % (Auto) (9.0-44.0) % Benson % (Auto) (0.0-8.0) % Eos % (Auto) (0.0-4.0) % Baso % (Auto) (0.0-2.0) % Neut # (Auto) (1.8-7.7) th/mm3 Lymph # (Auto) (1.0-4.8) th/mm3 Benson # (Auto) (0.0-0.9) th/mm3 Eos # (Auto) (0.0-0.4) th/mm3 Baso # (Auto) (0.0-0.2) th/mm3 WBC Differential PT (9.8-11.6) sec INR Ratio Puncture Site Right radial Patient Temperature 98.6 O2 Saturation 94 (90-100) % ABG pH 7.01 L* (7.380-7.420) ABG pCO2 15 L* (38-42) mmHg ABG pO2 124 H (61-120) mmHg ABG HCO3 4 L* (22-26) mmol/L ABG O2 Content 18.1 (12.0-20.0) Vol % ABG Base Excess -25.5 L (-2-2) mmol/L ABG Methemoglobin 1.7 (0-2) % Iain Test Present Cap Carboxyhemoglobin 1.3 (0-4) % Hemoglobin 13.6 (12.0-16.0) G/DL O2 Delivery Device None Inspired O2 21 % Critical Value Yes Sodium (136-145) meq/L Potassium (3.5-5.1) meq/L Chloride (98-107) meq/L Carbon Dioxide (21.0-32.0) meq/L Anion Gap (5-15) meq/L BUN (7-18) mg/dL Creatinine (0.60-1.30) mg/dL Estimated GFR (>89) mL/min POC Glucose 382 H 274 H (68-110) mg/dl Random Glucose (74-106) mg/dL Lactic Acid (0.4-2.0) mmol/L Calcium (8.5-10.1) mg/dL Phosphorus (2.5-4.9) mg/dL Magnesium (1.5-2.5) mg/dL Total Bilirubin (0.2-1.0) mg/dL AST (15-37) U/L ALT (12-78) U/L Alkaline Phosphatase (45-117) U/L Troponin I (0.02-0.05) ng/mL Total Protein (6.4-8.2) g/dL Albumin (3.4-5.0) g/dL Beta-Hydroxybutyric Acd (0.00-0.39) mmol/L Ur Collection Type Urine Color (Yellw/Straw) Urine Clarity (Clear) Urine pH (5.0-8.5) Ur Specific [place] (1.002-1.035) Urine Protein (Neg-Trace) mg/dL Urine Glucose (UA) (Negative) mg/dL Urine Ketones (Negative) mg/dL Urine Occult Blood (Negative) Urine Nitrate (Negative) Urine Bilirubin (Negative) Urine Urobilinogen (Less than 2) mg/dL Ur Leukocyte Esterase (Negative) Urine RBC (0-3) /hpf Ur Squamous Epith Cells (0-5) /hpf Urine Culture Comments Nasal Screen MRSA (PCR) (Negative) 10/16/17 10/16/17 10/16/17 Range/Units 11:33 12:06 13:01 CBC w Diff WBC (4.0-11.0) th/mm3 RBC (4.50-5.90) mil/mm3 Hgb (13.0-17.0) gm/dL Hct (39.0-51.0) % MCV (80.0-100.0) fL MCH (27.0-34.0) pg MCHC (32.0-36.0) % RDW (11.6-17.2) % Plt Count (150-450) th/mm3 MPV (7.0-11.0) fL Neut % (Auto) (16.0-70.0) % Lymph % (Auto) (9.0-44.0) % Benson % (Auto) (0.0-8.0) % Eos % (Auto) (0.0-4.0) % Baso % (Auto) (0.0-2.0) % Neut # (Auto) (1.8-7.7) th/mm3 Lymph # (Auto) (1.0-4.8) th/mm3 Benson # (Auto) (0.0-0.9) th/mm3 Eos # (Auto) (0.0-0.4) th/mm3 Baso # (Auto) (0.0-0.2) th/mm3 WBC Differential PT (9.8-11.6) sec INR Ratio Puncture Site Right radial Patient Temperature 98.6 O2 Saturation 95 (90-100) % ABG pH 7.31 L (7.380-7.420) ABG pCO2 23 L* (38-42) mmHg ABG pO2 92 (61-120) mmHg ABG HCO3 11 L* (22-26) mmol/L ABG O2 Content 18.4 (12.0-20.0) Vol % ABG Base Excess -13.9 L (-2-2) mmol/L ABG Methemoglobin 1.5 (0-2) % Iain Test Present Cap Carboxyhemoglobin 1.5 (0-4) % Hemoglobin 13.7 (12.0-16.0) G/DL O2 Delivery Device None Inspired O2 21 % Critical Value Yes Sodium (136-145) meq/L Potassium (3.5-5.1) meq/L Chloride (98-107) meq/L Carbon Dioxide (21.0-32.0) meq/L Anion Gap (5-15) meq/L BUN (7-18) mg/dL Creatinine (0.60-1.30) mg/dL Estimated GFR (>89) mL/min POC Glucose 212 H 172 H (68-110) mg/dl Random Glucose (74-106) mg/dL Lactic Acid (0.4-2.0) mmol/L Calcium (8.5-10.1) mg/dL Phosphorus (2.5-4.9) mg/dL Magnesium (1.5-2.5) mg/dL Total Bilirubin (0.2-1.0) mg/dL AST (15-37) U/L ALT (12-78) U/L Alkaline Phosphatase (45-117) U/L Troponin I (0.02-0.05) ng/mL Total Protein (6.4-8.2) g/dL Albumin (3.4-5.0) g/dL Beta-Hydroxybutyric Acd (0.00-0.39) mmol/L Ur Collection Type Urine Color (Yellw/Straw) Urine Clarity (Clear) Urine pH (5.0-8.5) Ur Specific [place] (1.002-1.035) Urine Protein (Neg-Trace) mg/dL Urine Glucose (UA) (Negative) mg/dL Urine Ketones (Negative) mg/dL Urine Occult Blood (Negative) Urine Nitrate (Negative) Urine Bilirubin (Negative) Urine Urobilinogen (Less than 2) mg/dL Ur Leukocyte Esterase (Negative) Urine RBC (0-3) /hpf Ur Squamous Epith Cells (0-5) /hpf Urine Culture Comments Nasal Screen MRSA (PCR) (Negative) 10/16/17 10/16/17 10/16/17 Range/Units 14:10 14:20 14:48 CBC w Diff WBC (4.0-11.0) th/mm3 RBC (4.50-5.90) mil/mm3 Hgb (13.0-17.0) gm/dL Hct (39.0-51.0) % MCV (80.0-100.0) fL MCH (27.0-34.0) pg MCHC (32.0-36.0) % RDW (11.6-17.2) % Plt Count (150-450) th/mm3 MPV (7.0-11.0) fL Neut % (Auto) (16.0-70.0) % Lymph % (Auto) (9.0-44.0) % Benson % (Auto) (0.0-8.0) % Eos % (Auto) (0.0-4.0) % Baso % (Auto) (0.0-2.0) % Neut # (Auto) (1.8-7.7) th/mm3 Lymph # (Auto) (1.0-4.8) th/mm3 [place] # (Auto) (0.0-0.9) th/mm3 Eos # (Auto) (0.0-0.4) th/mm3 Baso # (Auto) (0.0-0.2) th/mm3 WBC Differential PT (9.8-11.6) sec INR Ratio Puncture Site Patient Temperature O2 Saturation (90-100) % ABG pH (7.380-7.420) ABG pCO2 (38-42) mmHg ABG pO2 (61-120) mmHg ABG HCO3 (22-26) mmol/L ABG O2 Content (12.0-20.0) Vol % ABG Base Excess (-2-2) mmol/L ABG Methemoglobin (0-2) % Iain Test Cap Carboxyhemoglobin (0-4) % Hemoglobin (12.0-16.0) G/DL O2 Delivery Device Inspired O2 % Critical Value Sodium 144 D (136-145) meq/L Potassium 4.0 D (3.5-5.1) meq/L Chloride 115 H D (98-107) meq/L Carbon Dioxide 17.1 L D (21.0-32.0) meq/L Anion Gap 12 (5-15) meq/L BUN 19 H (7-18) mg/dL Creatinine 1.30 (0.60-1.30) mg/dL Estimated GFR 62 L (>89) mL/min POC Glucose 143 H 167 H (68-110) mg/dl Random Glucose 164 H D (74-106) mg/dL Lactic Acid (0.4-2.0) mmol/L Calcium 8.4 L D (8.5-10.1) mg/dL Phosphorus (2.5-4.9) mg/dL Magnesium (1.5-2.5) mg/dL Total Bilirubin (0.2-1.0) mg/dL AST (15-37) U/L ALT (12-78) U/L Alkaline Phosphatase (45-117) U/L Troponin I (0.02-0.05) ng/mL Total Protein (6.4-8.2) g/dL Albumin (3.4-5.0) g/dL Beta-Hydroxybutyric Acd (0.00-0.39) mmol/L Ur Collection Type Urine Color (Yellw/Straw) Urine Clarity (Clear) Urine pH (5.0-8.5) Ur Specific [place] (1.002-1.035) Urine Protein (Neg-Trace) mg/dL Urine Glucose (UA) (Negative) mg/dL Urine Ketones (Negative) mg/dL Urine Occult Blood (Negative) Urine Nitrate (Negative) Urine Bilirubin (Negative) Urine Urobilinogen (Less than 2) mg/dL Ur Leukocyte Esterase (Negative) Urine RBC (0-3) /hpf Ur Squamous Epith Cells (0-5) /hpf Urine Culture Comments Nasal Screen MRSA (PCR) (Negative) 10/16/17 10/16/17 10/16/17 Range/Units 15:45 17:38 20:29 CBC w Diff WBC (4.0-11.0) th/mm3 RBC (4.50-5.90) mil/mm3 Hgb (13.0-17.0) gm/dL Hct (39.0-51.0) % MCV (80.0-100.0) fL MCH (27.0-34.0) pg MCHC (32.0-36.0) % RDW (11.6-17.2) % Plt Count (150-450) th/mm3 MPV (7.0-11.0) fL Neut % (Auto) (16.0-70.0) % Lymph % (Auto) (9.0-44.0) % [place] % (Auto) (0.0-8.0) % Eos % (Auto) (0.0-4.0) % Baso % (Auto) (0.0-2.0) % Neut # (Auto) (1.8-7.7) th/mm3 Lymph # (Auto) (1.0-4.8) th/mm3 [place] # (Auto) (0.0-0.9) th/mm3 Eos # (Auto) (0.0-0.4) th/mm3 Baso # (Auto) (0.0-0.2) th/mm3 WBC Differential PT (9.8-11.6) sec INR Ratio Puncture Site Patient Temperature O2 Saturation (90-100) % ABG pH (7.380-7.420) ABG pCO2 (38-42) mmHg ABG pO2 (61-120) mmHg ABG HCO3 (22-26) mmol/L ABG O2 Content (12.0-20.0) Vol % ABG Base Excess (-2-2) mmol/L ABG Methemoglobin (0-2) % Iain Test Cap Carboxyhemoglobin (0-4) % Hemoglobin (12.0-16.0) G/DL O2 Delivery Device Inspired O2 % Critical Value Sodium 137 (136-145) meq/L Potassium 4.1 (3.5-5.1) meq/L Chloride 104 D (98-107) meq/L Carbon Dioxide 13.7 L (21.0-32.0) meq/L Anion Gap 19 H (5-15) meq/L BUN 18 (7-18) mg/dL Creatinine 1.10 (0.60-1.30) mg/dL Estimated GFR 75 L (>89) mL/min POC Glucose 192 H 308 H (68-110) mg/dl Random Glucose 369 H D (74-106) mg/dL Lactic Acid (0.4-2.0) mmol/L Calcium 8.2 L (8.5-10.1) mg/dL Phosphorus (2.5-4.9) mg/dL Magnesium (1.5-2.5) mg/dL Total Bilirubin (0.2-1.0) mg/dL AST (15-37) U/L ALT (12-78) U/L Alkaline Phosphatase (45-117) U/L Troponin I (0.02-0.05) ng/mL Total Protein (6.4-8.2) g/dL Albumin (3.4-5.0) g/dL Beta-Hydroxybutyric Acd (0.00-0.39) mmol/L Ur Collection Type Urine Color (Yellw/Straw) Urine Clarity (Clear) Urine pH (5.0-8.5) Ur Specific [place] (1.002-1.035) Urine Protein (Neg-Trace) mg/dL Urine Glucose (UA) (Negative) mg/dL Urine Ketones (Negative) mg/dL Urine Occult Blood (Negative) Urine Nitrate (Negative) Urine Bilirubin (Negative) Urine Urobilinogen (Less than 2) mg/dL Ur Leukocyte Esterase (Negative) Urine RBC (0-3) /hpf Ur Squamous Epith Cells (0-5) /hpf Urine Culture Comments Nasal Screen MRSA (PCR) (Negative) 10/16/17 10/17/17 10/17/17 Range/Units 21:21 02:15 02:15 CBC w Diff Auto diff final WBC 14.5 H (4.0-11.0) th/mm3 RBC 4.46 L (4.50-5.90) mil/mm3 Hgb 13.0 D (13.0-17.0) gm/dL Hct 40.0 (39.0-51.0) % MCV 89.9 D (80.0-100.0) fL MCH 29.1 (27.0-34.0) pg MCHC 32.4 (32.0-36.0) % RDW 11.7 (11.6-17.2) % Plt Count 287 (150-450) th/mm3 MPV 7.6 (7.0-11.0) fL Neut % (Auto) 79.6 H (16.0-70.0) % Lymph % (Auto) 14.8 (9.0-44.0) % [place] % (Auto) 4.6 (0.0-8.0) % Eos % (Auto) 0.1 (0.0-4.0) % Baso % (Auto) 0.9 (0.0-2.0) % Neut # (Auto) 11.6 H (1.8-7.7) th/mm3 Lymph # (Auto) 2.1 (1.0-4.8) th/mm3 [place] # (Auto) 0.7 (0.0-0.9) th/mm3 Eos # (Auto) 0.0 (0.0-0.4) th/mm3 Baso # (Auto) 0.1 (0.0-0.2) th/mm3 WBC Differential . PT (9.8-11.6) sec INR Ratio Puncture Site Patient Temperature O2 Saturation (90-100) % ABG pH (7.380-7.420) ABG pCO2 (38-42) mmHg ABG pO2 (61-120) mmHg ABG HCO3 (22-26) mmol/L ABG O2 Content (12.0-20.0) Vol % ABG Base Excess (-2-2) mmol/L ABG Methemoglobin (0-2) % Iain Test Cap Carboxyhemoglobin (0-4) % Hemoglobin (12.0-16.0) G/DL O2 Delivery Device Inspired O2 % Critical Value Sodium (136-145) meq/L Potassium (3.5-5.1) meq/L Chloride (98-107) meq/L Carbon Dioxide (21.0-32.0) meq/L Anion Gap (5-15) meq/L BUN (7-18) mg/dL Creatinine (0.60-1.30) mg/dL Estimated GFR (>89) mL/min POC Glucose 329 H (68-110) mg/dl Random Glucose (74-106) mg/dL Lactic Acid (0.4-2.0) mmol/L Calcium (8.5-10.1) mg/dL Phosphorus (2.5-4.9) mg/dL Magnesium (1.5-2.5) mg/dL Total Bilirubin (0.2-1.0) mg/dL AST (15-37) U/L ALT (12-78) U/L Alkaline Phosphatase (45-117) U/L Troponin I (0.02-0.05) ng/mL Total Protein (6.4-8.2) g/dL Albumin (3.4-5.0) g/dL Beta-Hydroxybutyric Acd (0.00-0.39) mmol/L Ur Collection Type Urine Color (Yellw/Straw) Urine Clarity (Clear) Urine pH (5.0-8.5) Ur Specific [place] (1.002-1.035) Urine Protein (Neg-Trace) mg/dL Urine Glucose (UA) (Negative) mg/dL Urine Ketones (Negative) mg/dL Urine Occult Blood (Negative) Urine Nitrate (Negative) Urine Bilirubin (Negative) Urine Urobilinogen (Less than 2) mg/dL Ur Leukocyte Esterase (Negative) Urine RBC (0-3) /hpf Ur Squamous Epith Cells (0-5) /hpf Urine Culture Comments Nasal Screen MRSA (PCR) Not detected (Negative) 10/17/17 10/17/17 10/17/17 Range/Units 02:15 02:15 02:15 CBC w Diff WBC (4.0-11.0) th/mm3 RBC (4.50-5.90) mil/mm3 Hgb (13.0-17.0) gm/dL Hct (39.0-51.0) % MCV (80.0-100.0) fL MCH (27.0-34.0) pg MCHC (32.0-36.0) % RDW (11.6-17.2) % Plt Count (150-450) th/mm3 MPV (7.0-11.0) fL Neut % (Auto) (16.0-70.0) % Lymph % (Auto) (9.0-44.0) % [place] % (Auto) (0.0-8.0) % Eos % (Auto) (0.0-4.0) % Baso % (Auto) (0.0-2.0) % Neut # (Auto) (1.8-7.7) th/mm3 Lymph # (Auto) (1.0-4.8) th/mm3 [place] # (Auto) (0.0-0.9) th/mm3 Eos # (Auto) (0.0-0.4) th/mm3 Baso # (Auto) (0.0-0.2) th/mm3 WBC Differential PT (9.8-11.6) sec INR Ratio Puncture Site Patient Temperature O2 Saturation (90-100) % ABG pH (7.380-7.420) ABG pCO2 (38-42) mmHg ABG pO2 (61-120) mmHg ABG HCO3 (22-26) mmol/L ABG O2 Content (12.0-20.0) Vol % ABG Base Excess (-2-2) mmol/L ABG Methemoglobin (0-2) % Iain Test Cap Carboxyhemoglobin (0-4) % Hemoglobin (12.0-16.0) G/DL O2 Delivery Device Inspired O2 % Critical Value Sodium 137 (136-145) meq/L Potassium 3.7 (3.5-5.1) meq/L Chloride 106 (98-107) meq/L Carbon Dioxide 21.4 (21.0-32.0) meq/L Anion Gap 10 (5-15) meq/L BUN 14 (7-18) mg/dL Creatinine 1.10 (0.60-1.30) mg/dL Estimated GFR 75 L (>89) mL/min POC Glucose (68-110) mg/dl Random Glucose 220 H D (74-106) mg/dL Lactic Acid (0.4-2.0) mmol/L Calcium 8.4 L (8.5-10.1) mg/dL Phosphorus 2.9 D (2.5-4.9) mg/dL Magnesium 2.0 (1.5-2.5) mg/dL Total Bilirubin 0.4 (0.2-1.0) mg/dL AST 20 (15-37) U/L ALT 37 (12-78) U/L Alkaline Phosphatase 111 (45-117) U/L Troponin I (0.02-0.05) ng/mL Total Protein 7.2 D (6.4-8.2) g/dL Albumin 3.5 D (3.4-5.0) g/dL Beta-Hydroxybutyric Acd 1.04 H D (0.00-0.39) mmol/L Ur Collection Type Urine Color (Yellw/Straw) Urine Clarity (Clear) Urine pH (5.0-8.5) Ur Specific [place] (1.002-1.035) Urine Protein (Neg-Trace) mg/dL Urine Glucose (UA) (Negative) mg/dL Urine Ketones (Negative) mg/dL Urine Occult Blood (Negative) Urine Nitrate (Negative) Urine Bilirubin (Negative) Urine Urobilinogen (Less than 2) mg/dL Ur Leukocyte Esterase (Negative) Urine RBC (0-3) /hpf Ur Squamous Epith Cells (0-5) /hpf Urine Culture Comments Nasal Screen MRSA (PCR) (Negative) 10/17/17 10/17/17 10/17/17 Range/Units 04:27 04:27 04:27 CBC w Diff Auto diff final WBC 14.2 H (4.0-11.0) th/mm3 RBC 4.66 (4.50-5.90) mil/mm3 Hgb 14.3 (13.0-17.0) gm/dL Hct 41.4 (39.0-51.0) % MCV 88.8 (80.0-100.0) fL MCH 30.8 (27.0-34.0) pg MCHC 34.6 (32.0-36.0) % RDW 12.3 (11.6-17.2) % Plt Count 297 (150-450) th/mm3 MPV 8.1 (7.0-11.0) fL Neut % (Auto) 72.1 H (16.0-70.0) % Lymph % (Auto) 18.5 (9.0-44.0) % [place] % (Auto) 6.7 (0.0-8.0) % Eos % (Auto) 0.0 (0.0-4.0) % Baso % (Auto) 2.7 H (0.0-2.0) % Neut # (Auto) 10.2 H (1.8-7.7) th/mm3 Lymph # (Auto) 2.6 (1.0-4.8) th/mm3 [place] # (Auto) 1.0 H (0.0-0.9) th/mm3 Eos # (Auto) 0.0 (0.0-0.4) th/mm3 Baso # (Auto) 0.4 H (0.0-0.2) th/mm3 WBC Differential . PT 11.0 (9.8-11.6) sec INR 1.1 Ratio Puncture Site Patient Temperature O2 Saturation (90-100) % ABG pH (7.380-7.420) ABG pCO2 (38-42) mmHg ABG pO2 (61-120) mmHg ABG HCO3 (22-26) mmol/L ABG O2 Content (12.0-20.0) Vol % ABG Base Excess (-2-2) mmol/L ABG Methemoglobin (0-2) % Iain Test Cap Carboxyhemoglobin (0-4) % Hemoglobin (12.0-16.0) G/DL O2 Delivery Device Inspired O2 % Critical Value Sodium (136-145) meq/L Potassium (3.5-5.1) meq/L Chloride (98-107) meq/L Carbon Dioxide (21.0-32.0) meq/L Anion Gap (5-15) meq/L BUN (7-18) mg/dL Creatinine (0.60-1.30) mg/dL Estimated GFR (>89) mL/min POC Glucose (68-110) mg/dl Random Glucose (74-106) mg/dL Lactic Acid 1.4 (0.4-2.0) mmol/L Calcium (8.5-10.1) mg/dL Phosphorus (2.5-4.9) mg/dL Magnesium (1.5-2.5) mg/dL Total Bilirubin (0.2-1.0) mg/dL AST (15-37) U/L ALT (12-78) U/L Alkaline Phosphatase (45-117) U/L Troponin I (0.02-0.05) ng/mL Total Protein (6.4-8.2) g/dL Albumin (3.4-5.0) g/dL Beta-Hydroxybutyric Acd (0.00-0.39) mmol/L Ur Collection Type Urine Color (Yellw/Straw) Urine Clarity (Clear) Urine pH (5.0-8.5) Ur Specific [place] (1.002-1.035) Urine Protein (Neg-Trace) mg/dL Urine Glucose (UA) (Negative) mg/dL Urine Ketones (Negative) mg/dL Urine Occult Blood (Negative) Urine Nitrate (Negative) Urine Bilirubin (Negative) Urine Urobilinogen (Less than 2) mg/dL Ur Leukocyte Esterase (Negative) Urine RBC (0-3) /hpf Ur Squamous Epith Cells (0-5) /hpf Urine Culture Comments Nasal Screen MRSA (PCR) (Negative) 10/17/17 10/17/17 10/17/17 Range/Units 04:27 04:27 08:11 CBC w Diff WBC (4.0-11.0) th/mm3 RBC (4.50-5.90) mil/mm3 Hgb (13.0-17.0) gm/dL Hct (39.0-51.0) % MCV (80.0-100.0) fL MCH (27.0-34.0) pg MCHC (32.0-36.0) % RDW (11.6-17.2) % Plt Count (150-450) th/mm3 MPV (7.0-11.0) fL Neut % (Auto) (16.0-70.0) % Lymph % (Auto) (9.0-44.0) % [place] % (Auto) (0.0-8.0) % Eos % (Auto) (0.0-4.0) % Baso % (Auto) (0.0-2.0) % Neut # (Auto) (1.8-7.7) th/mm3 Lymph # (Auto) (1.0-4.8) th/mm3 [place] # (Auto) (0.0-0.9) th/mm3 Eos # (Auto) (0.0-0.4) th/mm3 Baso # (Auto) (0.0-0.2) th/mm3 WBC Differential PT (9.8-11.6) sec INR Ratio Puncture Site Patient Temperature O2 Saturation (90-100) % ABG pH (7.380-7.420) ABG pCO2 (38-42) mmHg ABG pO2 (61-120) mmHg ABG HCO3 (22-26) mmol/L ABG O2 Content (12.0-20.0) Vol % ABG Base Excess (-2-2) mmol/L ABG Methemoglobin (0-2) % Iain Test Cap Carboxyhemoglobin (0-4) % Hemoglobin (12.0-16.0) G/DL O2 Delivery Device Inspired O2 % Critical Value Sodium 137 (136-145) meq/L Potassium 3.5 (3.5-5.1) meq/L Chloride 105 (98-107) meq/L Carbon Dioxide 23.8 (21.0-32.0) meq/L Anion Gap 8 (5-15) meq/L BUN 12 (7-18) mg/dL Creatinine 1.10 (0.60-1.30) mg/dL Estimated GFR 75 L (>89) mL/min POC Glucose 365 H (68-110) mg/dl Random Glucose 139 H (74-106) mg/dL Lactic Acid (0.4-2.0) mmol/L Calcium 8.7 (8.5-10.1) mg/dL Phosphorus 2.7 (2.5-4.9) mg/dL Magnesium 2.1 (1.5-2.5) mg/dL Total Bilirubin (0.2-1.0) mg/dL AST (15-37) U/L ALT (12-78) U/L Alkaline Phosphatase (45-117) U/L Troponin I (0.02-0.05) ng/mL Total Protein (6.4-8.2) g/dL Albumin (3.4-5.0) g/dL Beta-Hydroxybutyric Acd (0.00-0.39) mmol/L Ur Collection Type Urine Color (Yellw/Straw) Urine Clarity (Clear) Urine pH (5.0-8.5) Ur Specific [place] (1.002-1.035) Urine Protein (Neg-Trace) mg/dL Urine Glucose (UA) (Negative) mg/dL Urine Ketones (Negative) mg/dL Urine Occult Blood (Negative) Urine Nitrate (Negative) Urine Bilirubin (Negative) Urine Urobilinogen (Less than 2) mg/dL Ur Leukocyte Esterase (Negative) Urine RBC (0-3) /hpf Ur Squamous Epith Cells (0-5) /hpf Urine Culture Comments Nasal Screen MRSA (PCR) (Negative) 10/17/17 10/17/17 Range/Units 11:45 11:55 CBC w Diff WBC (4.0-11.0) th/mm3 RBC (4.50-5.90) mil/mm3 Hgb (13.0-17.0) gm/dL Hct (39.0-51.0) % MCV (80.0-100.0) fL MCH (27.0-34.0) pg MCHC (32.0-36.0) % RDW (11.6-17.2) % Plt Count (150-450) th/mm3 MPV (7.0-11.0) fL Neut % (Auto) (16.0-70.0) % Lymph % (Auto) (9.0-44.0) % [place] % (Auto) (0.0-8.0) % Eos % (Auto) (0.0-4.0) % Baso % (Auto) (0.0-2.0) % Neut # (Auto) (1.8-7.7) th/mm3 Lymph # (Auto) (1.0-4.8) th/mm3 [place] # (Auto) (0.0-0.9) th/mm3 Eos # (Auto) (0.0-0.4) th/mm3 Baso # (Auto) (0.0-0.2) th/mm3 WBC Differential PT (9.8-11.6) sec INR Ratio Puncture Site Patient Temperature O2 Saturation (90-100) % ABG pH (7.380-7.420) ABG pCO2 (38-42) mmHg ABG pO2 (61-120) mmHg ABG HCO3 (22-26) mmol/L ABG O2 Content (12.0-20.0) Vol % ABG Base Excess (-2-2) mmol/L ABG Methemoglobin (0-2) % Iain Test Cap Carboxyhemoglobin (0-4) % Hemoglobin (12.0-16.0) G/DL O2 Delivery Device Inspired O2 % Critical Value Sodium 136 (136-145) meq/L Potassium 3.3 L (3.5-5.1) meq/L Chloride 103 (98-107) meq/L Carbon Dioxide 23.8 (21.0-32.0) meq/L Anion Gap 9 (5-15) meq/L BUN 14 (7-18) mg/dL Creatinine 1.10 (0.60-1.30) mg/dL Estimated GFR 75 L (>89) mL/min POC Glucose 227 H (68-110) mg/dl Random Glucose 235 H (74-106) mg/dL Lactic Acid (0.4-2.0) mmol/L Calcium 8.7 (8.5-10.1) mg/dL Phosphorus (2.5-4.9) mg/dL Magnesium (1.5-2.5) mg/dL Total Bilirubin (0.2-1.0) mg/dL AST (15-37) U/L ALT (12-78) U/L Alkaline Phosphatase (45-117) U/L Troponin I (0.02-0.05) ng/mL Total Protein (6.4-8.2) g/dL Albumin (3.4-5.0) g/dL Beta-Hydroxybutyric Acd (0.00-0.39) mmol/L Ur Collection Type Urine Color (Yellw/Straw) Urine Clarity (Clear) Urine pH (5.0-8.5) Ur Specific [place] (1.002-1.035) Urine Protein (Neg-Trace) mg/dL Urine Glucose (UA) (Negative) mg/dL Urine Ketones (Negative) mg/dL Urine Occult Blood (Negative) Urine Nitrate (Negative) Urine Bilirubin (Negative) Urine Urobilinogen (Less than 2) mg/dL Ur Leukocyte Esterase (Negative) Urine RBC (0-3) /hpf Ur Squamous Epith Cells (0-5) /hpf Urine Culture Comments Nasal Screen MRSA (PCR) (Negative) Discharge Plan Discharge Disposition Patient Disposition: 01 Discharge Home Discharge Condition Condition: Stable Discharge Order Discharge Orders: Discharge Order (Routine); Ordered 10/17/17 Ordered By: Mechelle White Physicians Team ED Provider: Gregg Roca Attending Provider: Mechelle White Status ED Status: Left Department Discharge Information Discharge Date/Time: 10/16/17 16:40
[2017-10-16 07:32] LABS: Baso # (Auto) 0.2 th/mm3 (0.0-0.2); Baso % (Auto) 1.1 % (0.0-2.0); Eos % (Auto) 0.1 % (0.0-4.0); Hematocrit 48.8 % (39.0-51.0); Hemoglobin 16.3 gm/dL (13.0-17.0); Lymph # (Auto) 1.8 th/mm3 (1.0-4.8); Lymph % (Auto) 8.8 % (9.0-44.0); Mean Corpuscular HGB Conc 33.3 % (32.0-36.0); Mean Corpuscular Hemoglobin 31.7 pg (27.0-34.0); Mean Platelet Volume 10.5 fL (7.0-11.0); Mono % (Auto) 4.8 % (0.0-8.0); Neut # (Auto) 17.1 th/mm3 (1.8-7.7); Neut % (Auto) 85.2 % (16.0-70.0); Platelet Count 226 th/mm3 (150-450); Red Blood Count 5.14 mil/mm3 (4.50-5.90); White Blood Count 20.1 th/mm3 (4.0-11.0)
[2017-10-16 07:52] LABS: Clarity,Urine Clear (Clear); Color,Urine Yellow (Yellw/Straw); Leukocyte Esterase,Urine Negative (Negative); Urobilinogen,Urine 0.2 mg/dL (Less than 2)
[2017-10-16 07:55] LABS: Alanine Aminotransferase 46 U/L (12-78); Albumin 4.4 g/dL (3.4-5.0); Anion Gap 33 meq/L (5-15); Aspartate Aminotransferase 32 U/L (15-37); Blood Urea Nitrogen 30 mg/dL (7-18); Calcium 9.2 mg/dL (8.5-10.1); Carbon Dioxide 6.6 meq/L (21.0-32.0); Chloride 91 meq/L (98-107); Glomerular Filtration Rate 49 mL/min (>89); Magnesium 2.5 mg/dL (1.5-2.5); Sodium 131 meq/L (136-145)
[2017-10-16 07:56] LABS: Potassium 5.8 meq/L (3.5-5.1)
[2017-10-16 07:57] LABS: Glucose,Random 764 mg/dL (74-106)
[2017-10-16 08:03] LABS: Phosphorus 8.8 mg/dL (2.5-4.9)
[2017-10-16 08:05] LABS: Bilirubin,Urine Negative (Negative); Nitrite,Urine Negative (Negative); Specific Gravity,Urine 1.025 (1.002-1.035)
[2017-10-16 08:06] LABS: RBC,Urine 0-3 /hpf (0-3); Squamous Epithelial Cell,Urine 0-5 /hpf (0-5)
[2017-10-16 08:16] LABS: ABG Base Excess -25.5 mmol/L (-2-2); ABG PCO2 15 mmHg (38-42); ABG PO2 124 mmHg (61-120)
[2017-10-16] MEDS ORDERED: Sodium Bicarbonate 8.4% Inj 50 MEQ/50 ML Syringe IV.PUSH ONE (08:19)
[2017-10-16] MEDS ORDERED: Insulin Regular (For Infusion) 100 UNIT in Sodium Chlor 0.9% Inj 99 ML IV.CONT PRN ×3 (08:20→12:00)
[2017-10-16 08:38] LABS: Beta Hydroxybutyric Acid 14.93 mmol/L (0.00-0.39)
[2017-10-16 08:50] LABS: Alkaline Phosphatase 167 U/L (45-117)
[2017-10-16] MEDS ORDERED: Potassium Chlor 20 mEq Premix 20 MEQ/100 ML PIGGYBACK IV.SIG PRN ×6 (09:36)
[2017-10-16] MEDS ORDERED: Potassium Chlor 40 mEq Premix 40 MEQ/100 ML PIGGYBACK IV.SIG PRN ×2 (09:36)
[2017-10-16] MEDS ORDERED: Sodium Phosphate Inj 15 MMOL in Sodium Chlor 0.9% Inj 100 ML IV.SIG PRN (09:36)
[2017-10-16] MEDS ORDERED: Sod Chloride 0.9% Inj 1,000 ML IV.CONT SCH (10:00)
[2017-10-16] MEDS ORDERED: Bisacodyl 10 MG Supp RECTAL PRN (10:27)
[2017-10-16] MEDS: Dextrose 5%/NaCl 0.9% Inj 1,000 ML IV.CONT SCH ×2 (10:54→12:14)
--- NOTE | 2017-10-16 11:03 | ED ---
HPI General Chief complaint: Weakness Stated complaint: Diabetic Time Seen by Provider: 10/16/17 06:28 Source: patient Mode of arrival: ambulatory Limitations: no limitations History of Present Illness Location: abdomen Quality: dull Relieving factors: none Exacerbating factors: none Associated symptoms: malaise and nausea/vomiting Treatments prior to arrival: none Related Data Home Medications Medication Instructions Recorded Confirmed Novolin N NPH U-100 Insulin 10/16/17 Novolin R Regular U-100 Insuln 10/16/17 alprazolam 1 mg PO BID 10/16/17 10/16/17 hydrocodone-acetaminophen Q4-6M PRN 10/16/17 Allergies Allergy/AdvReac Type Severity Reaction Status Date / Time acetaminophen Allergy Severe Rash Verified 10/14/17 11:50 propoxyphene Allergy Severe Rash Verified 10/14/17 11:57 [facility] Medical History Medical History Diabetes (Acute) Surgical History Surgical History No history of previous surgery (Acute) Social History Social History Substance History: Past History Second Hand Smoke Exposure: No Smoking Status: Current every day smoker Tobacco Type: Cigarettes How Often Do You Have a Drink Containing Alcohol: Monthly or less Recent Travel in [facility] within the Last 8 Weeks: No Recent Out of Country Travel within the Last 8 Weeks: No Immunization History Tetanus Immunization: <5 Years Hx Influenza Vaccine This Season: No Course Hospital Course: Patient was put on monitor and IV established. Normal saline solution 1 L IV bolus. Zofran 4 mg ODT. Initial Documented Vital Signs Temperature 97.9 F 10/16/17 06:07 Pulse Rate 105 H 10/16/17 06:07 Respiratory Rate 28 H 10/16/17 06:07 Blood Pressure 112/68 10/16/17 06:07 Pulse Oximetry 100 10/16/17 06:07 Last Documented Vital Signs Temperature 97.9 F 10/16/17 06:07 Pulse Rate 105 H 10/16/17 10:13 Respiratory Rate 22 10/16/17 10:13 Blood Pressure 136/79 10/16/17 10:13 Pulse Oximetry 100 10/16/17 10:13 Critical Care Time Critical Care Time: Yes Total Critical Care Time: 78 Attestation: Aggregate critical care time was 78 minutes. Time to perform other separately billable procedures was not included in the critical care time. My time did not include minutes spent treating any other patients simultaneously or on activities that did not directly contribute to the patient's treatment. The services I provided to this patient were to treat and/or prevent clinically significant deterioration that could result in: Cardiopulmonary arrest, cardiac arrhythmia, metabolic derangements that are severe I provided critical care services requiring my management, as noted below: Chart data review, documentation time, medication orders and management, vital sign assessments/reviewing monitor data, ordering and reviewing lab tests, ordering and interpreting/reviewing x-rays and diagnostic studies, care of the patient and discussion of the patient with the admitting physicians. NIH Stroke Scale NIH Stroke Scale Level of Consciousness: 0-Alert Orientation Questions: 0-Answers both correct Responds to Commands: 0-Both tasks correct Gaze Eye Movement: 0-Horizontal movement WNL Visual [place]: 0-No visual field defect Facial Movement: 0-Normal Motor Functions Arm LEFT: 0-No drift Motor Functions Arm RIGHT: 0-No drift Motor Functions Leg LEFT: 0-No drift Motor Functions Leg RIGHT: 0-No drift Limb Ataxia: 0-No ataxia Sensory Loss: 0-No sensory loss Best Language: 0-Normal Articulation: 0-Normal Extinction or Inattention Sensory: 0-Absent Total: 0 Medical Decision Making MDM Narrative Medical decision making narrative: This patient was signed out to me by at 7 AM. I have reviewed his labs and evaluated the patient. He is critically ill in severe DKA. ABG reveals pH of 7.0. his ketones are very high and his sugar is in the 700s. I placed bilateral external jugular IVs He has 2 peripherals in the arms for a total of 4 IVs I gave him an additional 2 L IV normal saline but this and he is now had a total of 3.5 L normal saline IV I gave him 10 units IV regular insulin I gave him 2 A of sodium bicarbonate I have initiated insulin drip at 7 U/h Rest of his labs are reviewed. I discussed with the roll finisher will admit to intensive care Patient is quite complicated and multiple rechecks were needed and a lot of bedside time. He is severely acidotic. Lab Data Result diagrams: 10/16/17 07:15 07/01/18 07:15 Lab Results 10/16/17 10/16/17 10/16/17 Range/Units 07:15 07:15 07:41 CBC w Diff Auto diff final WBC 20.1 H (4.0-11.0) th/mm3 RBC 5.14 (4.50-5.90) mil/mm3 Hgb 16.3 (13.0-17.0) gm/dL Hct 48.8 (39.0-51.0) % MCV 95.0 (80.0-100.0) fL MCH 31.7 (27.0-34.0) pg MCHC 33.3 (32.0-36.0) % RDW 13.0 (11.6-17.2) % Plt Count 226 (150-450) th/mm3 MPV 10.5 (7.0-11.0) fL Neut % (Auto) 85.2 H (16.0-70.0) % Lymph % (Auto) 8.8 L (9.0-44.0) % [place] % (Auto) 4.8 (0.0-8.0) % Eos % (Auto) 0.1 (0.0-4.0) % Baso % (Auto) 1.1 (0.0-2.0) % Neut # (Auto) 17.1 H (1.8-7.7) th/mm3 Lymph # (Auto) 1.8 (1.0-4.8) th/mm3 [place] # (Auto) 1.0 H (0.0-0.9) th/mm3 Eos # (Auto) 0.0 (0.0-0.4) th/mm3 Baso # (Auto) 0.2 (0.0-0.2) th/mm3 WBC Differential . Puncture Site Patient Temperature O2 Saturation (90-100) % ABG pH (7.380-7.420) ABG pCO2 (38-42) mmHg ABG pO2 (61-120) mmHg ABG HCO3 (22-26) mmol/L ABG O2 Content (12.0-20.0) Vol % ABG Base Excess (-2-2) mmol/L ABG Methemoglobin (0-2) % Iain Test Cap Carboxyhemoglobin (0-4) % Hemoglobin (12.0-16.0) G/DL O2 Delivery Device Inspired O2 % Critical Value Sodium 131 L (136-145) meq/L Potassium 5.8 H (3.5-5.1) meq/L Chloride 91 L (98-107) meq/L Carbon Dioxide 6.6 L (21.0-32.0) meq/L Anion Gap 33 H (5-15) meq/L BUN 30 H (7-18) mg/dL Creatinine 1.60 H (0.60-1.30) mg/dL Estimated GFR 49 L (>89) mL/min POC Glucose (68-110) mg/dl Random Glucose 764 H* (74-106) mg/dL Calcium 9.2 (8.5-10.1) mg/dL Phosphorus 8.8 H (2.5-4.9) mg/dL Magnesium 2.5 (1.5-2.5) mg/dL Total Bilirubin 0.6 (0.2-1.0) mg/dL AST 32 (15-37) U/L ALT 46 (12-78) U/L Alkaline Phosphatase 167 H (45-117) U/L Troponin I Less than 0.02 L (0.02-0.05) ng/mL Total Protein 9.0 H (6.4-8.2) g/dL Albumin 4.4 (3.4-5.0) g/dL Beta-Hydroxybutyric Acd 14.93 H (0.00-0.39) mmol/L Ur Collection Type Clean catch Urine Color Yellow (Yellw/Straw) Urine Clarity Clear (Clear) Urine pH 5.0 (5.0-8.5) Ur Specific [place] 1.025 (1.002-1.035) Urine Protein Trace (Neg-Trace) mg/dL Urine Glucose (UA) 1000 or greater (Negative) mg/dL Urine Ketones 80 or greater H (Negative) mg/dL Urine Occult Blood Trace H (Negative) Urine Nitrate Negative (Negative) Urine Bilirubin Negative (Negative) Urine Urobilinogen 0.2 (Less than 2) mg/dL Ur Leukocyte Esterase Negative (Negative) Urine RBC 0-3 (0-3) /hpf Ur Squamous Epith Cells 0-5 (0-5) /hpf Urine Culture Comments Culture not ind 10/16/17 10/16/17 Range/Units 08:03 10:19 CBC w Diff WBC (4.0-11.0) th/mm3 RBC (4.50-5.90) mil/mm3 Hgb (13.0-17.0) gm/dL Hct (39.0-51.0) % MCV (80.0-100.0) fL MCH (27.0-34.0) pg MCHC (32.0-36.0) % RDW (11.6-17.2) % Plt Count (150-450) th/mm3 MPV (7.0-11.0) fL Neut % (Auto) (16.0-70.0) % Lymph % (Auto) (9.0-44.0) % [place] % (Auto) (0.0-8.0) % Eos % (Auto) (0.0-4.0) % Baso % (Auto) (0.0-2.0) % Neut # (Auto) (1.8-7.7) th/mm3 Lymph # (Auto) (1.0-4.8) th/mm3 [place] # (Auto) (0.0-0.9) th/mm3 Eos # (Auto) (0.0-0.4) th/mm3 Baso # (Auto) (0.0-0.2) th/mm3 WBC Differential Puncture Site Right radial Patient Temperature 98.6 O2 Saturation 94 (90-100) % ABG pH 7.01 L* (7.380-7.420) ABG pCO2 15 L* (38-42) mmHg ABG pO2 124 H (61-120) mmHg ABG HCO3 4 L* (22-26) mmol/L ABG O2 Content 18.1 (12.0-20.0) Vol % ABG Base Excess -25.5 L (-2-2) mmol/L ABG Methemoglobin 1.7 (0-2) % Iain Test Present Cap Carboxyhemoglobin 1.3 (0-4) % Hemoglobin 13.6 (12.0-16.0) G/DL O2 Delivery Device None Inspired O2 21 % Critical Value Yes Sodium (136-145) meq/L Potassium (3.5-5.1) meq/L Chloride (98-107) meq/L Carbon Dioxide (21.0-32.0) meq/L Anion Gap (5-15) meq/L BUN (7-18) mg/dL Creatinine (0.60-1.30) mg/dL Estimated GFR (>89) mL/min POC Glucose 382 H (68-110) mg/dl Random Glucose (74-106) mg/dL Calcium (8.5-10.1) mg/dL Phosphorus (2.5-4.9) mg/dL Magnesium (1.5-2.5) mg/dL Total Bilirubin (0.2-1.0) mg/dL AST (15-37) U/L ALT (12-78) U/L Alkaline Phosphatase (45-117) U/L Troponin I (0.02-0.05) ng/mL Total Protein (6.4-8.2) g/dL Albumin (3.4-5.0) g/dL Beta-Hydroxybutyric Acd (0.00-0.39) mmol/L Ur Collection Type Urine Color (Yellw/Straw) Urine Clarity (Clear) Urine pH (5.0-8.5) Ur Specific [place] (1.002-1.035) Urine Protein (Neg-Trace) mg/dL Urine Glucose (UA) (Negative) mg/dL Urine Ketones (Negative) mg/dL Urine Occult Blood (Negative) Urine Nitrate (Negative) Urine Bilirubin (Negative) Urine Urobilinogen (Less than 2) mg/dL Ur Leukocyte Esterase (Negative) Urine RBC (0-3) /hpf Ur Squamous Epith Cells (0-5) /hpf Urine Culture Comments Discharge Plan Discharge Disposition Patient Disposition: 01 Discharge Home Discharge Order Discharge Orders: Discharge Order (Routine); Ordered 10/16/17 Ordered By: Mehrdad Vickers Physicians Team ED Provider: rGegg Roca Primary Care Provider: UNKNOWN, Attending Provider: Deborah Suarez Status ED Status: Admitted Patient
--- NOTE | 2017-10-16 11:21 | P.HPCC ---
History of Present Illness Service: Critical care Primary Care Physician: UNKNOWN Chief Complaint: hyperglycemia, nausea History of Present Illness: This is a 37-year-old male that presented with hyperglycemia abdominal pain nausea vomiting the patient previously was admitted 10/14/2017 for DKA with a glucose level of 404 per records and history the patient has been noncompliant with insulin due to financial reasons. Today the patient presented with a beta hydroxybutyrate of 14.53 and ketonuria and complaints of nausea and vomiting the patient received 3.5 L of normal saline, was bolused dosed with 10 units of insulin and DKA protocol insulin infusion was initiated. The patient was noted to have a pH of 7.0 100 mEq of sodium bicarbonate was given. Repeat ABG is pending. Critical care medicine was consulted for management. - Diagnosis (1) DKA (diabetic ketoacidoses) - Inpatient Certification If this patient has been admitted as an Inpatient: I certify that the inpatient services were ordered in accordance with Medicare regulations governing the order. This includes certification that hospital inpatient services are reasonable and necessary and in the case of services not specified as inpatient-only under 42 CFR 419.22(n), that they are appropriately provided as inpatient services in accordance to with the 2-midnight benchmark under 43 CFR 412.3(e) Estimated Total Length of Stay (Days): 5 Plans for Post Hospital Care: Home Review of Systems All other systems reviewed negative except as stated in HPI PMFSH - History History Provided By: Patient - Medical History Medical History: Medical History (Last Reviewed 10/16/17 @ 06:43 by Mehrdad Vickers MD) Diabetes - Surgical History Surgical History: Surgical History (Last Reviewed 10/16/17 @ 06:43 by Mehrdad Vickers MD) No history of previous surgery - Tobacco History Second Hand Smoke Exposure: No Tobacco Use In Past 30 Days: Yes Smoking Status: Current every day smoker Tobacco Type: Cigarettes - Alcohol History How Often Do You Have a Drink Containing Alcohol: Monthly or less - Substance Use History Substance History: Past History - Travel History Recent Travel in the [place] Within the Last 8 Weeks: No Recent Travel Out of the Country Within the Last 8 Weeks: No - Immunization History Tetanus Immunization: <5 Years Hx Influenza Vaccine This Season: No Medications and Allergies Active Medications: Active Medications Al Hydroxide/Mg Hydroxide (Milk Of Magnesia Liq) 30 ml PO Q12H PRN PRN Reason: Mild Constipation Albuterol (Duoneb Neb (Prn)) 1 ampul NEB Q2HR NEB PRN PRN Reason: WHEEZING Bisacodyl (Dulcolax Supp) 10 mg RECTAL DAILY PRN PRN Reason: SEVERE CONSITIPATION Chlorhexidine Gluconate (Chlorhexidine 2% Cloth) 3 pack TOPICAL DAILY@0400 [facility] Stop: 10/22/17 03:59 Chlorhexidine Gluconate (Chlorhexidine 2% Cloth) 3 pack TOPICAL DAILY@0400 PRN PRN Reason: Extra cloth needed Stop: 10/22/17 03:59 Chlorhexidine Gluconate (Chlorhexidine 2% Cloth) 3 pack TOPICAL DAILY@0400 [facility] Stop: 10/22/17 03:59 Chlorhexidine Gluconate (Chlorhexidine 2% Cloth) 3 pack TOPICAL DAILY@0400 PRN PRN Reason: Extra cloth needed Stop: 10/22/17 03:59 Famotidine (Pepcid) 20 mg PO BID [place] Famotidine (Pepcid Pf Inj) 20 mg IV.PUSH Q12HR [facility] Heparin Sodium (Porcine) (Heparin Inj) 5,000 units SQ Q12H [facility] Insulin Human Regular 100 unit (/ Sodium Chloride) 100 mls @ 7 mls/hr IV.CONT TITRATE PRN; Protocol PRN Reason: SEE PROTOCOL Dextrose/Sodium Chloride (D5w/Normal Saline Inj) 1,000 mls @ 200 mls/hr IV.CONT .Q5H [facility] Last Admin: 10/16/17 10:54 Dose: Not Given Sodium Chloride (Ns Inj) 1,000 mls @ 250 mls/hr IV.CONT .Q4H [facility] Last Admin: 10/16/17 10:36 Dose: 250 mls/hr Potassium Chloride (Kcl 40 Meq Premix Inj) 40 meq in 100 mls @ 100 mls/hr IV.SIG Q1H PRN PRN Reason: for Initial K+ ONLY < 3.5 Potassium Chloride (Kcl 40 Meq Premix Inj) 40 meq in 100 mls @ 50 mls/hr IV.SIG Q2H PRN PRN Reason: for Subsequent K+ < 3.5 Potassium Chloride (Kcl 20 Meq Premix Inj) 20 meq in 100 mls @ 100 mls/hr IV.SIG Q1H PRN PRN Reason: for K+ 3.5 to 4.4 Potassium Chloride (Kcl 20 Meq Premix Inj) 20 meq in 100 mls @ 100 mls/hr IV.SIG Q1H PRN PRN Reason: for K+ 4.5 to 5 Potassium Chloride (Kcl 20 Meq Premix Inj) 20 meq in 100 mls @ 50 mls/hr IV.SIG Q2H PRN PRN Reason: for Initial K+ ONLY < 3.5 Potassium Chloride (Kcl 20 Meq Premix Inj) 20 meq in 100 mls @ 50 mls/hr IV.SIG Q2H PRN PRN Reason: for Subsequent K+ < 3.5 Potassium Chloride (Kcl 20 Meq Premix Inj) 20 meq in 100 mls @ 50 mls/hr IV.SIG Q2H PRN PRN Reason: for K+ 3.5 to 4.4 Potassium Chloride (Kcl 20 Meq Premix Inj) 20 meq in 100 mls @ 50 mls/hr IV.SIG Q2H PRN PRN Reason: for K+ 4.5 to 5 Sodium Phosphate 15 mmol/ (Sodium Chloride) 105 mls @ 25 mls/hr IV.SIG UNSCH PRN PRN Reason: for Phosphate Level < 1.0 Lactulose (Lactulose Liq) 30 ml PO DAILY PRN PRN Reason: SEVERE CONSITIPATION Senna/Docusate Sodium (Shahnaz-Colace) 1 tab PO BID [place] Sennosides (Senokot) 17.2 mg PO Q12H PRN PRN Reason: Moderate Constipation Sodium Bicarbonate (Sodium Bicarbonate 8.4% Inj) 50 meq IV.PUSH UNSCH PRN PRN Reason: for pH 6.9 to 7.0 Sodium Bicarbonate (Sodium Bicarbonate 8.4% Inj) 100 meq IV.PUSH UNSCH PRN PRN Reason: for pH less than 6.9 Sodium Chloride (Ns Flush) 2 ml IV.FLUSH BID [place] Sodium Chloride (Ns Flush) 2 ml IV.FLUSH PRN PRN PRN Reason: FLUSH AFTER USING IV ACCESS Sodium Chloride (Ns Flush) 2 ml IV.FLUSH PRN PRN PRN Reason: FLUSH AFTER USING IV ACCESS Allergies Allergy/AdvReac Type Severity Reaction Status Date / Time acetaminophen Allergy Severe Rash Verified 10/14/17 11:50 propoxyphene Allergy Severe Rash Verified 10/14/17 11:57 Home Medications Medication Instructions Recorded Confirmed Type Novolin N NPH U-100 Insulin 10/16/17 History Novolin R Regular U-100 Insuln 10/16/17 History alprazolam 1 mg PO BID 10/16/17 10/16/17 History hydrocodone-acetaminophen Q4-6M PRN 10/16/17 History Results - Labs CBC & Chem 7: 10/16/17 07:15 10/16/17 07:15 Labs: Short CBC 10/16/17 Range/Units 07:15 WBC 20.1 H (4.0-11.0) th/mm3 Hgb 16.3 (13.0-17.0) gm/dL Hct 48.8 (39.0-51.0) % Plt Count 226 (150-450) th/mm3 BMP 10/16/17 07:15 Sodium 131 L Potassium 5.8 H Chloride 91 L Carbon Dioxide 6.6 L BUN 30 H Creatinine 1.60 H Calcium 9.2 Cardiac Enzymes 10/16/17 Range/Units 07:15 Troponin I Less than 0.02 L (0.02-0.05) ng/mL Liver Function 10/16/17 Range/Units 07:15 Total Bilirubin 0.6 (0.2-1.0) mg/dL AST 32 (15-37) U/L ALT 46 (12-78) U/L Alkaline Phosphatase 167 H (45-117) U/L Albumin 4.4 (3.4-5.0) g/dL Urine 10/16/17 Range/Units 07:41 Urine Color Yellow (Yellw/Straw) Urine Clarity Clear (Clear) Urine pH 5.0 (5.0-8.5) Ur Specific [place] 1.025 (1.002-1.035) Urine Protein Trace (Neg-Trace) mg/dL Urine Glucose (UA) 1000 or greater (Negative) mg/dL - ABG ABG results: 10/16/17 08:03 ABG pH 7.01 L* ABG pCO2 15 L* ABG pO2 124 H ABG HCO3 4 L* ABG O2 Content 18.1 ABG Base Excess -25.5 L ABG Methemoglobin 1.7 Exam Vital signs: Vital Signs 10/16/17 06:07 10/16/17 08:35 10/16/17 09:15 Temperature 97.9 F Pulse Rate 105 H 105 H 92 H Respiratory Rate 28 H 24 24 Blood Pressure 112/68 141/68 H 138/68 Pulse Oximetry 100 100 100 07/01/18 10:13 Temperature Pulse Rate 105 H Respiratory Rate 22 Blood Pressure 136/79 Pulse Oximetry 100 Intake & Output 10/15/17 10/16/17 10/16/17 18:59 06:59 18:59 Intake Total 3000 / 3000 Balance 3000 / 3000 Weight 72.575 kg Intake: IV 3000 / 3000 NS Inj 1,000 ML @ Wide Open IV. 1999 SIG BOLUS ONE Rx#:[id number] - Constitutional mild distress - Routine HEENT Exam Head: Present: normocephalic Eye: Present: EOMI, PERRL, normal accommodation, conjunctivae pink ENT: Present: mucous membranes dry, oropharynx clear, nares patent - Routine Neck Exam Present: full ROM, trachea midline - Routine Cardiovascular Exam Present: RRR, S1, S2 - Routine Abdominal Exam Present: soft, normoactive bowel sounds - Routine Extremities Exam Present: full ROM, pulses intact, normal capillary refill - Routine Skin Exam Present: intact - Routine Neurological Exam Present: alert, oriented X3, CN II-XII intact, normal reflexes Caprini VTE Risk Assessment Caprini VTE Risk Assessment: Moderate/High Risk (score >= 2) Caprini Risk Assessment Model: Point Value = 1 Point Value = 2 Point Value = 3 Point Value = 5 Age 41-60 Minor surgery BMI > 25 kg/m2 Swollen legs Varicose veins or History of unexplained or recurrent spontaneous Oral contraceptives or hormone replacement Sepsis (< 1 month) Serious lung disease, including pneumonia (< 1 month) Abnormal pulmonary function Acute myocardial infarction Congestive heart failure (< 1 month) History of inflammatory bowel disease Medical patient at bed rest Age 61-74 Arthroscopic surgery Major open surgery (> 45 min) Laparoscopic surgery (> 45 min) Malignancy Confined to bed (> 72 hours) Immobilizing plaster cast Central venous access Age >= 75 History of VTE Family history of VTE Factor V Leiden Prothrombin [id number] Lupus anticoagulant Anticardiolipin antibodies Elevated serum homocysteine Heparin-induced thrombocytopenia Other congenital or acquired thrombophilia Stroke (< 1 month) Elective arthroplasty Hip, pelvis, or leg fracture Acute spinal cord injury (< 1 month) Prophylaxis Regimen: Total Risk Factor Score Risk Level Prophylaxis Regimen 0-1 Low Early ambulation 2 Moderate Order ONE of the following: *Sequential Compression Device (SCD) *Heparin 5000 units SQ BID 3-4 Higher Order ONE of the following medications: *Heparin 5000 units SQ TID *Enoxaparin/Lovenox 40 mg SQ daily (WT < 150 kg, CrCl > 30 mL/min) *Enoxaparin/Lovenox 30 mg SQ daily (WT < 150 kg, CrCl > 10-29 mL/min) *Enoxaparin/Lovenox 30 mg SQ BID (WT < 150 kg, CrCl > 30 mL/min) AND/OR *Sequential Compression Device (SCD) 5 or more Highest Order ONE of the following medications: *Heparin 5000 units SQ TID (Preferred with Epidurals) *Enoxaparin/Lovenox 40 mg SQ daily (WT < 150 kg, CrCl > 30 mL/min) *Enoxaparin/Lovenox 30 mg SQ daily (WT < 150 kg, CrCl > 10-29 mL/min) *Enoxaparin/Lovenox 30 mg SQ BID (WT < 150 kg, CrCl > 30 mL/min) AND *Sequential Compression Device (SCD) Assessment and Plan - Problem List (1) DKA (diabetic ketoacidoses) Code(s): E13.10 - Other specified diabetes mellitus with ketoacidosis without coma Status: Acute - Assessment and Plan Plan: Assessment This is a 37-year-old male with multiple admissions for DKA secondary to noncompliance for multiple reasons the patient presented with a glucose level of 764 this a.m. currently on insulin infusion we will admit to ICU. Plan by systems: Neurologic: Chronic pain syndrome Neuro checks per ICU protocol Respiratory: Maintain O2 saturation greater than 92% Provide oxygen 14 L/min if required Bronchodilators as needed Cardiovascular: Telemetry-sinus rhythm Maintain MAP >65mmHg Renal: No Thomas required -- Strict I/Os FEN/GI: Maintain n.p.o. status for now, until anion gap closed Normal saline at 200 cc/hour Bowel regimen Zofran for nausea Heme/ID: Leukocytosis Anion gap metabolic acidosis secondary to DKA Continue IV infusion per DKA protocol currently normal saline at 200 cc/hour Obtain blood and urine cultures Initial ABG 7.0 1/15/124/4/-25.5, 100 mEq of sodium bicarbonate given IV Repeat ABG pending Monitor CBC Endocrine: DKA Continue DKA protocol, currently insulin infusion 8.5 units/ -- SSI Prophylaxis: GI Prophylaxis Famotidine DVT Prophylaxis -- SCDs Heparin twice daily Lines: Peripheral IVs 4. Central line if indicated Dispo: my billing statement This patient remains critically ill with one or more organ systems which are or may become a threat to life. I have spent in excess of 67 minutes discontinuously in the care and management of this patient. This time is exclusive of procedures, and includes, but is not limited to, evaluation of the patient, review of the medical record, discussions with family, consultants, nursing staff, or respiratory therapy, and documentation in the medical record. Code Status: Full Discussed Condition With: Dr. Roca, patient, and REGISTERED PHARMACY TECHNICIAN at bedside
[2017-10-16 11:42] LABS: ABG Base Excess -13.9 mmol/L (-2-2); ABG PCO2 23 mmHg (38-42); ABG PO2 92 mmHg (61-120)
[2017-10-16] MEDS ORDERED: Heparin - SQ 10,000 UNITS/ML Vial SQ SCH (12:00)
[2017-10-16 15:30] LABS: Calcium 8.4 mg/dL (8.5-10.1); Carbon Dioxide 17.1 meq/L (21.0-32.0)
[2017-10-16] MEDS ORDERED: Insulin Detemir Inj 1,000 UNIT/10 ML Vial SQ ONE (18:45)
[2017-10-16] MEDS ORDERED: Ibuprofen 400 MG Tablet PO PRN (19:38)
[2017-10-16] MEDS ORDERED: Senna/Docusate Sodium 8.6/50 MG Tablet PO SCH (21:00)
[2017-10-16] MEDS ORDERED: Famotidine PF Inj 20 MG/2 ML Vial IV.PUSH SCH (21:00)
[2017-10-16] MEDS ORDERED: Famotidine 20 MG Tablet PO SCH (21:00)
[2017-10-16 21:10] LABS: Calcium 8.2 mg/dL (8.5-10.1); Carbon Dioxide 13.7 meq/L (21.0-32.0); Potassium 4.1 meq/L (3.5-5.1)
--- NOTE | 2017-10-17 00:07 | ECG ---
Date Performed: 10/16/2017 Time Performed: 08:22:25 PTAGE: 37 years EKG: SINUS TACHYCARDIA POSSIBLE RIGHT ATRIAL ENLARGEMENT POSSIBLE LEFT ATRIAL ENLARGEMENT POSSIB LE RIGHT VENTRICULAR CONDUCTION DELAY MINIMAL ST DEPRESSION ABNORMAL RHYTHM ECG PREVIOUS TRACING : 05/31/2017 03.25 Compared to previous tracing, rate has increased, unable t o compare further as previous had limb lead reversal DOCTOR: Amilcar Galeano Interpretating Date/Time 10/17/2017 00:05:42
[2017-10-17] MEDS ORDERED: Insulin Regular (For Infusion) 100 UNIT in Sodium Chlor 0.9% Inj 99 ML IV.CONT PRN (01:34)
[2017-10-17] MEDS ORDERED: Potassium Chlor 40 mEq Premix 40 MEQ/100 ML PIGGYBACK IV.SIG PRN ×2 (01:34)
[2017-10-17] MEDS ORDERED: Potassium Chlor 20 mEq Premix 20 MEQ/100 ML PIGGYBACK IV.SIG PRN ×6 (01:34)
[2017-10-17] MEDS ORDERED: Sodium Phosphate Inj 15 MMOL in Sodium Chlor 0.9% Inj 100 ML IV.SIG PRN (01:34)
[2017-10-17] MEDS ORDERED: Dextrose 5%/NaCl 0.9% Inj 1,000 ML IV.CONT SCH (01:45)
[2017-10-17] MEDS ORDERED: Sod Chloride 0.9% Inj 1,000 ML IV.CONT SCH (01:45)
[2017-10-17 02:27] LABS: Baso # (Auto) 0.1 th/mm3 (0.0-0.2); Baso % (Auto) 0.9 % (0.0-2.0); Eos % (Auto) 0.1 % (0.0-4.0); Lymph # (Auto) 2.1 th/mm3 (1.0-4.8); Lymph % (Auto) 14.8 % (9.0-44.0); Mean Corpuscular HGB Conc 32.4 % (32.0-36.0); Mean Corpuscular Hemoglobin 29.1 pg (27.0-34.0); Mean Corpuscular Volume 89.9 fL (80.0-100.0); Mean Platelet Volume 7.6 fL (7.0-11.0); Mono # (Auto) 0.7 th/mm3 (0.0-0.9); Mono % (Auto) 4.6 % (0.0-8.0); Neut # (Auto) 11.6 th/mm3 (1.8-7.7); Neut % (Auto) 79.6 % (16.0-70.0); Platelet Count 287 th/mm3 (150-450); Red Blood Count 4.46 mil/mm3 (4.50-5.90); Red Cell Distribution Width 11.7 % (11.6-17.2); White Blood Count 14.5 th/mm3 (4.0-11.0)
[2017-10-17 02:39] LABS: Chloride 106 meq/L (98-107); Potassium 3.7 meq/L (3.5-5.1); Sodium 137 meq/L (136-145)
[2017-10-17 02:43] LABS: Calcium 8.4 mg/dL (8.5-10.1)
[2017-10-17 02:48] LABS: Phosphorus 2.9 mg/dL (2.5-4.9)
[2017-10-17 02:54] LABS: Alanine Aminotransferase 37 U/L (12-78); Albumin 3.5 g/dL (3.4-5.0); Alkaline Phosphatase 111 U/L (45-117); Anion Gap 10 meq/L (5-15); Aspartate Aminotransferase 20 U/L (15-37); Blood Urea Nitrogen 14 mg/dL (7-18); Carbon Dioxide 21.4 meq/L (21.0-32.0); Glomerular Filtration Rate 75 mL/min (>89); Glucose,Random 220 mg/dL (74-106); Total Protein 7.2 g/dL (6.4-8.2)
[2017-10-17] MEDS ORDERED: Dextrose 50% in Water 50 ML Vial IV.PUSH PRN (03:41)
[2017-10-17] MEDS ORDERED: Chlorhexidine Gluconate 2% 1 Pack (2 Cloths) TOPICAL SCH ×3 (04:00)
[2017-10-17] MEDS ORDERED: Chlorhexidine Gluconate 2% 1 Pack (2 Cloths) TOPICAL PRN ×3 (04:00)
[2017-10-17 05:04] LABS: Potassium 3.5 meq/L (3.5-5.1)
[2017-10-17 05:06] LABS: Calcium 8.7 mg/dL (8.5-10.1); INR 1.1 Ratio
[2017-10-17 05:07] LABS: Baso # (Auto) 0.4 th/mm3 (0.0-0.2); Baso % (Auto) 2.7 % (0.0-2.0); Carbon Dioxide 23.8 meq/L (21.0-32.0); Hematocrit 41.4 % (39.0-51.0); Hemoglobin 14.3 gm/dL (13.0-17.0); Lymph # (Auto) 2.6 th/mm3 (1.0-4.8); Lymph % (Auto) 18.5 % (9.0-44.0); Mean Corpuscular HGB Conc 34.6 % (32.0-36.0); Mean Corpuscular Hemoglobin 30.8 pg (27.0-34.0); Mean Corpuscular Volume 88.8 fL (80.0-100.0); Mean Platelet Volume 8.1 fL (7.0-11.0); Mono % (Auto) 6.7 % (0.0-8.0); Neut # (Auto) 10.2 th/mm3 (1.8-7.7); Neut % (Auto) 72.1 % (16.0-70.0); Platelet Count 297 th/mm3 (150-450); Red Blood Count 4.66 mil/mm3 (4.50-5.90); Red Cell Distribution Width 12.3 % (11.6-17.2); White Blood Count 14.2 th/mm3 (4.0-11.0)
[2017-10-17 05:08] LABS: Magnesium 2.1 mg/dL (1.5-2.5)
[2017-10-17 05:11] LABS: Phosphorus 2.7 mg/dL (2.5-4.9)
[2017-10-17] MEDS ORDERED: Insulin Detemir Inj 1,000 UNIT/10 ML Vial SQ SCH (09:00)
[2017-10-17] MEDS: Insulin NovoLOG Aspart Correctional Sugar Inj SQ SCH ×2 (09:16→12:14)
--- NOTE | 2017-10-17 11:32 | P.PNIM ---
Subjective Interval history: Patient doing well. Gap closed electrolytes stable. Discharge plans discussed with patient who is agreeable. Physical Exam Vital signs: Vital Signs 10/16/17 12:15 10/16/17 13:15 10/16/17 14:15 Temperature Pulse Rate 107 H 99 H 88 Respiratory Rate 22 18 20 Blood Pressure 126/73 132/69 132/61 Pulse Oximetry 99 98 99 10/16/17 15:39 10/16/17 16:54 10/16/17 17:18 Temperature 98 F Pulse Rate 80 90 Respiratory Rate 20 20 20 Blood Pressure 144/67 H 123/65 Pulse Oximetry 99 99 10/16/17 20:00 10/16/17 20:30 10/16/17 22:52 Temperature 100.8 F H Pulse Rate 72 84 Respiratory Rate 16 16 Blood Pressure 132/72 137/68 Pulse Oximetry 99 98 10/16/17 23:00 10/16/17 23:34 10/16/17 23:42 Temperature 99.5 F Pulse Rate 78 86 80 Respiratory Rate 25 H 18 Blood Pressure 138/75 137/68 Pulse Oximetry 100 99 10/17/17 00:00 10/17/17 01:00 10/17/17 02:00 Temperature Pulse Rate 62 70 66 Respiratory Rate 19 19 25 H Blood Pressure 138/74 134/80 133/74 Pulse Oximetry 99 98 98 10/17/17 02:36 10/17/17 03:00 10/17/17 03:44 Temperature Pulse Rate 66 62 Respiratory Rate 34 H 22 Blood Pressure 125/74 Pulse Oximetry 100 10/17/17 04:00 10/17/17 05:00 10/17/17 06:00 Temperature 98 F Pulse Rate 72 60 60 Respiratory Rate 23 21 Blood Pressure 131/77 135/78 150/79 H Pulse Oximetry 100 99 99 10/17/17 07:00 10/17/17 07:48 10/17/17 08:00 Temperature Pulse Rate 64 80 Respiratory Rate 27 H 25 H Blood Pressure 136/74 Pulse Oximetry 99 99 99 Intake & Output 10/16/17 10/17/17 10/17/17 18:59 06:59 18:59 Intake Total 3267 / 3267 1592 / 1592 Output Total 2750 / 2750 750 / 750 Balance 517 / 517 842 / 842 Weight 60.8 kg 60.7 kg Intake: IV 3027 / 3027 NS Inj 1,000 ML @ Wide Open IV. 1999 / 1999 SIG BOLUS ONE Rx#:[id number] Oral 240 / 240 720 / 720 Other 872 / 872 Output: Urine 2750 / 2750 750 / 750 Other: Other Intake Source Saline Solution # Voids 1 # Incontinent Voids 1 Weight On Admission 60.8 kg - Constitutional no acute distress, average body habitus, cooperative - Routine HEENT Exam Head: Present: normocephalic, atraumatic Eye: Present: EOMI, PERRL, normal accommodation - Routine Neck Exam Present: supple - Routine Respiratory Exam Present: CTA bilaterally - Routine Cardiovascular Exam Present: RRR, S1 - Routine Abdominal Exam Present: soft - Routine Extremities Exam Present: full ROM - Routine Skin Exam Present: intact - Routine Neurological Exam Present: alert, oriented X3, CN II-XII intact - Routine Psychiatric Exam Present: normal affect Results - Labs CBC & Chem 7: 10/17/17 04:27 10/17/17 04:27 Laboratory Results - last 24 hr 10/16/17 10/16/17 10/16/17 11:33 12:06 13:01 CBC w Diff WBC RBC Hgb Hct MCV MCH MCHC RDW Plt Count MPV Neut % (Auto) Lymph % (Auto) Slope % (Auto) Eos % (Auto) Baso % (Auto) Neut # (Auto) Lymph # (Auto) Slope # (Auto) Eos # (Auto) Baso # (Auto) WBC Differential PT INR Puncture Site Right radial Patient Temperature 98.6 O2 Saturation 95 ABG pH 7.31 L ABG pCO2 23 L* ABG pO2 92 ABG HCO3 11 L* ABG O2 Content 18.4 ABG Base Excess -13.9 L ABG Methemoglobin 1.5 Iain Test Present Cap Carboxyhemoglobin 1.5 Hemoglobin 13.7 O2 Delivery Device None Inspired O2 21 Critical Value Yes Sodium Potassium Chloride Carbon Dioxide Anion Gap BUN Creatinine Estimated GFR POC Glucose 212 H 172 H Random Glucose Lactic Acid Calcium Phosphorus Magnesium Total Bilirubin AST ALT Alkaline Phosphatase Total Protein Albumin Beta-Hydroxybutyric Acd 10/16/17 10/16/17 10/16/17 14:10 14:20 14:48 CBC w Diff WBC RBC Hgb Hct MCV MCH MCHC RDW Plt Count MPV Neut % (Auto) Lymph % (Auto) Slope % (Auto) Eos % (Auto) Baso % (Auto) Neut # (Auto) Lymph # (Auto) Slope # (Auto) Eos # (Auto) Baso # (Auto) WBC Differential PT INR Puncture Site Patient Temperature O2 Saturation ABG pH ABG pCO2 ABG pO2 ABG HCO3 ABG O2 Content ABG Base Excess ABG Methemoglobin Iain Test Cap Carboxyhemoglobin Hemoglobin O2 Delivery Device Inspired O2 Critical Value Sodium 144 D Potassium 4.0 D Chloride 115 H D Carbon Dioxide 17.1 L D Anion Gap 12 BUN 19 H Creatinine 1.30 Estimated GFR 62 L POC Glucose 143 H 167 H Random Glucose 164 H D Lactic Acid Calcium 8.4 L D Phosphorus Magnesium Total Bilirubin AST ALT Alkaline Phosphatase Total Protein Albumin Beta-Hydroxybutyric Acd 10/16/17 10/16/17 10/16/17 15:45 17:38 20:29 CBC w Diff WBC RBC Hgb Hct MCV MCH MCHC RDW Plt Count MPV Neut % (Auto) Lymph % (Auto) Slope % (Auto) Eos % (Auto) Baso % (Auto) Neut # (Auto) Lymph # (Auto) Slope # (Auto) Eos # (Auto) Baso # (Auto) WBC Differential PT INR Puncture Site Patient Temperature O2 Saturation ABG pH ABG pCO2 ABG pO2 ABG HCO3 ABG O2 Content ABG Base Excess ABG Methemoglobin Iain Test Cap Carboxyhemoglobin Hemoglobin O2 Delivery Device Inspired O2 Critical Value Sodium 137 Potassium 4.1 Chloride 104 D Carbon Dioxide 13.7 L Anion Gap 19 H BUN 18 Creatinine 1.10 Estimated GFR 75 L POC Glucose 192 H 308 H Random Glucose 369 H D Lactic Acid Calcium 8.2 L Phosphorus Magnesium Total Bilirubin AST ALT Alkaline Phosphatase Total Protein Albumin Beta-Hydroxybutyric Acd 10/16/17 10/17/17 10/17/17 21:21 02:15 02:15 CBC w Diff Auto diff final WBC 14.5 H RBC 4.46 L Hgb 13.0 D Hct 40.0 MCV 89.9 D MCH 29.1 MCHC 32.4 RDW 11.7 Plt Count 287 MPV 7.6 Neut % (Auto) 79.6 H Lymph % (Auto) 14.8 Slope % (Auto) 4.6 Eos % (Auto) 0.1 Baso % (Auto) 0.9 Neut # (Auto) 11.6 H Lymph # (Auto) 2.1 Slope # (Auto) 0.7 Eos # (Auto) 0.0 Baso # (Auto) 0.1 WBC Differential . PT INR Puncture Site Patient Temperature O2 Saturation ABG pH ABG pCO2 ABG pO2 ABG HCO3 ABG O2 Content ABG Base Excess ABG Methemoglobin Iain Test Cap Carboxyhemoglobin Hemoglobin O2 Delivery Device Inspired O2 Critical Value Sodium 137 Potassium 3.7 Chloride 106 Carbon Dioxide 21.4 Anion Gap 10 BUN 14 Creatinine 1.10 Estimated GFR 75 L POC Glucose 329 H Random Glucose 220 H D Lactic Acid Calcium 8.4 L Phosphorus Magnesium Total Bilirubin 0.4 AST 20 ALT 37 Alkaline Phosphatase 111 Total Protein 7.2 D Albumin 3.5 D Beta-Hydroxybutyric Acd 10/17/17 10/17/17 10/17/17 02:15 02:15 04:27 CBC w Diff Auto diff final WBC 14.2 H RBC 4.66 Hgb 14.3 Hct 41.4 MCV 88.8 MCH 30.8 MCHC 34.6 RDW 12.3 Plt Count 297 MPV 8.1 Neut % (Auto) 72.1 H Lymph % (Auto) 18.5 Slope % (Auto) 6.7 Eos % (Auto) 0.0 Baso % (Auto) 2.7 H Neut # (Auto) 10.2 H Lymph # (Auto) 2.6 Slope # (Auto) 1.0 H Eos # (Auto) 0.0 Baso # (Auto) 0.4 H WBC Differential . PT INR Puncture Site Patient Temperature O2 Saturation ABG pH ABG pCO2 ABG pO2 ABG HCO3 ABG O2 Content ABG Base Excess ABG Methemoglobin Iain Test Cap Carboxyhemoglobin Hemoglobin O2 Delivery Device Inspired O2 Critical Value Sodium Potassium Chloride Carbon Dioxide Anion Gap BUN Creatinine Estimated GFR POC Glucose Random Glucose Lactic Acid Calcium Phosphorus 2.9 D Magnesium 2.0 Total Bilirubin AST ALT Alkaline Phosphatase Total Protein Albumin Beta-Hydroxybutyric Acd 1.04 H D 10/17/17 10/17/17 10/17/17 04:27 04:27 04:27 CBC w Diff WBC RBC Hgb Hct MCV MCH MCHC RDW Plt Count MPV Neut % (Auto) Lymph % (Auto) Slope % (Auto) Eos % (Auto) Baso % (Auto) Neut # (Auto) Lymph # (Auto) Slope # (Auto) Eos # (Auto) Baso # (Auto) WBC Differential PT 11.0 INR 1.1 Puncture Site Patient Temperature O2 Saturation ABG pH ABG pCO2 ABG pO2 ABG HCO3 ABG O2 Content ABG Base Excess ABG Methemoglobin Iain Test Cap Carboxyhemoglobin Hemoglobin O2 Delivery Device Inspired O2 Critical Value Sodium Potassium Chloride Carbon Dioxide Anion Gap BUN Creatinine Estimated GFR POC Glucose Random Glucose Lactic Acid 1.4 Calcium Phosphorus 2.7 Magnesium 2.1 Total Bilirubin AST ALT Alkaline Phosphatase Total Protein Albumin Beta-Hydroxybutyric Acd 10/17/17 10/17/17 04:27 08:11 CBC w Diff WBC RBC Hgb Hct MCV MCH MCHC RDW Plt Count MPV Neut % (Auto) Lymph % (Auto) Slope % (Auto) Eos % (Auto) Baso % (Auto) Neut # (Auto) Lymph # (Auto) Slope # (Auto) Eos # (Auto) Baso # (Auto) WBC Differential PT INR Puncture Site Patient Temperature O2 Saturation ABG pH ABG pCO2 ABG pO2 ABG HCO3 ABG O2 Content ABG Base Excess ABG Methemoglobin Iain Test Cap Carboxyhemoglobin Hemoglobin O2 Delivery Device Inspired O2 Critical Value Sodium 137 Potassium 3.5 Chloride 105 Carbon Dioxide 23.8 Anion Gap 8 BUN 12 Creatinine 1.10 Estimated GFR 75 L POC Glucose 365 H Random Glucose 139 H Lactic Acid Calcium 8.7 Phosphorus Magnesium Total Bilirubin AST ALT Alkaline Phosphatase Total Protein Albumin Beta-Hydroxybutyric Acd Microbiology 10/16/17 11:05 Blood - Peripheral Aerobic Blood Culture - Preliminary No growth in 1 day 10/16/17 11:05 Blood - Peripheral Anaerobic Blood Culture - Preliminary No growth in 1 day 10/16/17 11:00 Blood - Peripheral Aerobic Blood Culture - Preliminary No growth in 1 day 10/16/17 11:00 Blood - Peripheral Anaerobic Blood Culture - Preliminary No growth in 1 day Assessment and Plan - Assessment (1) Diabetes mellitus type 1 Code(s): E10.9 - Type 1 diabetes mellitus without complications Status: Acute Plan: Resume home medications. Patient says he ran out of medications. No evidence of sepsis. No evidence of acute coronary syndrome. Discharge home to follow- up with his primary doctor and diet diabetic Activity unrestricted (2) DKA (diabetic ketoacidoses) Code(s): E13.10 - Other specified diabetes mellitus with ketoacidosis without coma Status: Acute Plan: Resolved after IV insulin and patient education. Progress Note: Quality - VTE Deep Vein Thrombosis/Pulmonary Embolism Present on Admission: No
[2017-10-17] MEDS ORDERED: Benzocaine/Menthol 15 MG/3.6 MG SF Lozenge BUCCAL ONE (12:00)
[2017-10-17 12:08] LABS: Potassium 3.3 meq/L (3.5-5.1)
[2017-10-17 12:11] LABS: Calcium 8.7 mg/dL (8.5-10.1); Carbon Dioxide 23.8 meq/L (21.0-32.0)
== END 2017-10-17 12:30 | disposition home or self-care (01) ==
LOC: UNDODISIN → PHED 05:58 → PHEDA 10:56 → PH3 16:40 → PHICU 22:51
PROVIDERS: ADMIT Hospitalist; ATTEND Hospitalist